=== PATIENT | female | born 1955 | race Native Hawaiian/Other Pacific Islander ===

== ENCOUNTER → 2019-01-05 | Outpatient (CLI) | payer BC ==
[2019-01-05 11:55] LABS: BASO # 0.1 10^3/uL (0.0-0.2); BASO % 0.7 % (0.0-1.0); EOS # 0.2 10^3/uL (0.0-0.50); EOS % 2.2 % (0.0-3.0); HEMATOCRIT 38.8 % (36.0-47.0); HEMOGLOBIN 12.8 g/dl (12.0-15.5); LYMPH # 2.2 10^3/uL (1.5-4.5); LYMPH % 30.8 % (24.0-44.0); MEAN CORPUSCULAR HEMOGLOBIN 25.5 pg (27.0-33.0); MEAN CORPUSCULAR VOLUME 77.4 fl (80.0-96.0); MONO # 0.6 10^3/uL (0.0-0.8); MONO % 8.8 % (0.0-5.0); NEUTROPHILS # 4.1 10^3/uL (1.8-7.7); NEUTROPHILS % 57.4 % (36.0-66.0); PLATELET COUNT, AUTOMATED 259 10^3/uL (150-450); RED BLOOD COUNT 5.01 10^6/uL (4.00-5.40); WHITE BLOOD COUNT 7.2 10^3/uL (4.0-10.0)
[2019-01-05 12:14] LABS: HEMOGLOBIN A1c 7.6 %
[2019-01-05 12:26] LABS: ALBUMIN 3.9 GM/DL (3.2-5.2); ALT/SGPT 19 U/L (12-78); BILIRUBIN,TOTAL 0.6 MG/DL (0.2-1.0); BLOOD UREA NITROGEN 14 MG/DL (7-18); CALCIUM LEVEL 8.9 MG/DL (8.8-10.2); CARBON DIOXIDE LEVEL 31 MEQ/L (21-32); CHLORIDE LEVEL 102 MEQ/L (98-107); CHOLESTEROL LEVEL 183 MG/DL (<200); CHOLESTEROL RISK RATIO 3.588 (<5); CREATININE FOR GFR 0.82 MG/DL (0.55-1.30); FREE T4 1.17 NG/DL (0.76-1.46); GLOMERULAR FILTRATION RATE > 60.0 (>45); GLUCOSE, FASTING 118 MG/DL (70-100); HDL CHOLESTEROL 51 MG/DL (>40); LDL CHOLESTEROL 106 MG/DL (<100); NON-HDL-C 132 MG/DL; POTASSIUM SERUM 4.3 MEQ/L (3.5-5.1); SODIUM LEVEL 139 MEQ/L (136-145); TOTAL PROTEIN 7.8 GM/DL (6.4-8.2); TRIGLYCERIDES LEVEL 128 MG/DL (<150)
== END ==
LOC: M LAB 11:16
PROVIDERS: ATTEND Nurse Practitioner Adult Health
DX: E11.65 Type 2 diabetes mellitus with hyperglycemia (principal); I10 Essential (primary) hypertension; F33.0 Major depressive disorder, recurrent, mild

== ENCOUNTER → 2019-05-17 | Outpatient (CLI) | payer BC ==
[2019-05-17 09:55] LABS: BASO # 0.1 10^3/uL (0.0-0.2); BASO % 0.7 % (0.0-1.0); EOS # 0.2 10^3/uL (0.0-0.50); EOS % 2.9 % (0.0-3.0); HEMATOCRIT 37.6 % (36.0-47.0); HEMOGLOBIN 12.1 g/dl (12.0-15.5); LYMPH # 2.5 10^3/uL (1.5-4.5); LYMPH % 34.6 % (24.0-44.0); MEAN CORPUSCULAR HEMOGLOBIN 25.2 pg (27.0-33.0); MEAN CORPUSCULAR HGB CONC 32.2 g/dl (32.0-36.5); MEAN CORPUSCULAR VOLUME 78.3 fl (80.0-96.0); MONO # 0.7 10^3/uL (0.0-0.8); MONO % 10.2 % (0.0-5.0); NEUTROPHILS # 3.7 10^3/uL (1.8-7.7); NEUTROPHILS % 51.3 % (36.0-66.0); PLATELET COUNT, AUTOMATED 264 10^3/uL (150-450); WHITE BLOOD COUNT 7.2 10^3/uL (4.0-10.0)
[2019-05-17 10:57] LABS: ALBUMIN 3.7 GM/DL (3.2-5.2); ALT/SGPT 19 U/L (12-78); BILIRUBIN,TOTAL 0.3 MG/DL (0.2-1.0); BLOOD UREA NITROGEN 15 MG/DL (7-18); CALCIUM LEVEL 8.8 MG/DL (8.8-10.2); CARBON DIOXIDE LEVEL 29 MEQ/L (21-32); CHLORIDE LEVEL 105 MEQ/L (98-107); CHOLESTEROL LEVEL 160 MG/DL (<200); CREATININE FOR GFR 0.73 MG/DL (0.55-1.30); FERRITIN 119 NG/ML (8-252); FREE T4 1.05 NG/DL (0.76-1.46); GLOMERULAR FILTRATION RATE > 60.0 (>45); GLUCOSE, FASTING 94 MG/DL (70-100); HDL CHOLESTEROL 50 MG/DL (>40); IRON (FE) 49 UG/DL (50-170); LDL CHOLESTEROL 83 MG/DL (<100); NON-HDL-C 110 MG/DL; PERCENT SATURATION 16.9 % (13.2-45.0); POTASSIUM SERUM 4.1 MEQ/L (3.5-5.1); SODIUM LEVEL 140 MEQ/L (136-145); TOTAL 25(OH) VITAMIN D 27.5 NG/ML (30.0-100.0); TOTAL IRON BINDING CAPACITY 290 UG/DL (250-450); TOTAL PROTEIN 7.3 GM/DL (6.4-8.2); TRIGLYCERIDES LEVEL 133 MG/DL (<150)
[2019-05-17 11:40] LABS: HEMOGLOBIN A1c 7.4 %
== END ==
LOC: M LAB 08:58
PROVIDERS: ATTEND Nurse Practitioner Adult Health
DX: E11.65 Type 2 diabetes mellitus with hyperglycemia (principal); I10 Essential (primary) hypertension; F33.0 Major depressive disorder, recurrent, mild; Z79.899 Other long term (current) drug therapy; D64.9 Anemia, unspecified; E55.9 Vitamin D deficiency, unspecified

== ENCOUNTER → 2019-10-22 | Outpatient (CLI) | payer BC ==
[2019-10-22 11:40] LABS: BASO % 0.6 % (0.0-1.0); EOS # 0.2 10^3/uL (0.0-0.5); EOS % 2.7 % (0.0-3.0); HEMATOCRIT 37.3 % (36.0-47.0); HEMOGLOBIN 11.8 g/dl (12.0-15.5); LYMPH % 27.2 % (24.0-44.0); MEAN CORPUSCULAR HGB CONC 31.6 g/dl (32.0-36.5); MONO # 0.7 10^3/uL (0.0-0.8); MONO % 9.8 % (0.0-5.0); NEUTROPHILS # 4.3 10^3/uL (1.5-8.5); NEUTROPHILS % 59.4 % (36.0-66.0); PLATELET COUNT, AUTOMATED 271 10^3/uL (150-450); RED BLOOD COUNT 4.72 10^6/uL (4.00-5.40); WHITE BLOOD COUNT 7.2 10^3/uL (4.0-10.0)
[2019-10-22 12:08] LABS: HEMOGLOBIN A1c 7.1 %
[2019-10-22 12:33] LABS: ALBUMIN 3.7 GM/DL (3.2-5.2); ALT/SGPT 24 U/L (12-78); BILIRUBIN,TOTAL 0.5 MG/DL (0.2-1.0); BLOOD UREA NITROGEN 10 MG/DL (7-18); CALCIUM LEVEL 9.2 MG/DL (8.8-10.2); CARBON DIOXIDE LEVEL 28 MEQ/L (21-32); CHLORIDE LEVEL 106 MEQ/L (98-107); CHOLESTEROL LEVEL 162 MG/DL (<200); GLOMERULAR FILTRATION RATE > 60.0 (>45); GLUCOSE, FASTING 109 MG/DL (70-100); HDL CHOLESTEROL 50 MG/DL (>40); IRON (FE) 53 UG/DL (50-170); LDL CHOLESTEROL 79 MG/DL (<100); NON-HDL-C 112 MG/DL; PERCENT SATURATION 18.1 % (13.2-45.0); POTASSIUM SERUM 4.3 MEQ/L (3.5-5.1); SODIUM LEVEL 141 MEQ/L (136-145); THYROID PEROXIDASE ANTIBODY < 28.0 U/ML (<60.0); TOTAL IRON BINDING CAPACITY 293 UG/DL (250-450); TOTAL PROTEIN 7.2 GM/DL (6.4-8.2); TRIGLYCERIDES LEVEL 164 MG/DL (<150)
== END ==
LOC: M LAB 09:35
PROVIDERS: ATTEND Nurse Practitioner Adult Health
DX: Z51.81 Encounter for therapeutic drug level monitoring (principal); Z79.899 Other long term (current) drug therapy; E78.5 Hyperlipidemia, unspecified; E11.65 Type 2 diabetes mellitus with hyperglycemia; D50.9 Iron deficiency anemia, unspecified; R94.6 Abnormal results of thyroid function studies

== ENCOUNTER → 2020-01-07 | Outpatient (CLI) | payer BC ==
[2020-01-07 13:30] LABS: BASO # 0.1 10^3/uL (0.0-0.2); BASO % 0.8 % (0.0-1.0); EOS # 0.1 10^3/uL (0.0-0.5); EOS % 1.3 % (0.0-3.0); HEMOGLOBIN 13.2 g/dl (12.0-15.5); LYMPH # 2.2 10^3/uL (1.5-5.0); LYMPH % 28.7 % (24.0-44.0); MEAN CORPUSCULAR HEMOGLOBIN 25.3 pg (27.0-33.0); MEAN CORPUSCULAR HGB CONC 32.2 g/dl (32.0-36.5); MEAN CORPUSCULAR VOLUME 78.5 fl (80.0-96.0); MONO # 0.7 10^3/uL (0.0-0.8); MONO % 8.5 % (0.0-5.0); NEUTROPHILS # 4.7 10^3/uL (1.5-8.5); NEUTROPHILS % 60.4 % (36.0-66.0); PLATELET COUNT, AUTOMATED 254 10^3/uL (150-450); RED BLOOD COUNT 5.22 10^6/uL (4.00-5.40); WHITE BLOOD COUNT 7.8 10^3/uL (4.0-10.0)
[2020-01-07 13:50] LABS: HEMOGLOBIN A1c 7.1 %
[2020-01-07 14:09] LABS: ALBUMIN 4.2 GM/DL (3.2-5.2); ALT/SGPT 27 U/L (12-78); BILIRUBIN,TOTAL 0.3 MG/DL (0.2-1.0); BLOOD UREA NITROGEN 20 MG/DL (7-18); CALCIUM LEVEL 9.1 MG/DL (8.8-10.2); CARBON DIOXIDE LEVEL 28 MEQ/L (21-32); CHLORIDE LEVEL 105 MEQ/L (98-107); CHOLESTEROL LEVEL 184 MG/DL (<200); CHOLESTEROL RISK RATIO 3.407 (<5); CREATININE FOR GFR 0.83 MG/DL (0.55-1.30); GLOMERULAR FILTRATION RATE > 60.0 (>45); GLUCOSE, FASTING 92 MG/DL (70-100); HDL CHOLESTEROL 54 MG/DL (>40); LDL CHOLESTEROL 96 MG/DL (<100); NON-HDL-C 130 MG/DL; POTASSIUM SERUM 4.2 MEQ/L (3.5-5.1); SODIUM LEVEL 139 MEQ/L (136-145); TOTAL PROTEIN 7.8 GM/DL (6.4-8.2); TRIGLYCERIDES LEVEL 170 MG/DL (<150)
== END ==
LOC: M LAB 11:52
PROVIDERS: ATTEND Nurse Practitioner Adult Health
DX: E11.65 Type 2 diabetes mellitus with hyperglycemia (principal); I10 Essential (primary) hypertension; E78.5 Hyperlipidemia, unspecified; Z79.899 Other long term (current) drug therapy; F33.0 Major depressive disorder, recurrent, mild

== ENCOUNTER 2020-03-13 20:52 | Inpatient (IN) | payer BC, MEDICARE ==
[~2020-03-13] VITALS: Ht 154.9 cm; Wt 58.1 kg
[2020-03-13] MEDS ORDERED: METO1TAB32 PO (21:31)
[2020-03-13] MEDS ORDERED: GLYB5TA PO ×2 (21:31→22:55)
[2020-03-13] MEDS ORDERED: LISI-542 PO (21:31)
[2020-03-13] MEDS ORDERED: SERT25TA21 PO (21:31)
[2020-03-13] MEDS ORDERED: METF10004 PO (21:31)
[2020-03-13 22:01] LABS: HEMATOCRIT 39.1 % (36.0-47.0); MEAN CORPUSCULAR HEMOGLOBIN 25.5 pg (27.0-33.0); MEAN CORPUSCULAR HGB CONC 33.2 g/dl (32.0-36.5); MEAN CORPUSCULAR VOLUME 76.7 fl (80.0-96.0); PLATELET COUNT, AUTOMATED 274 10^3/uL (150-450); WHITE BLOOD COUNT 8.3 10^3/uL (4.0-10.0)
[2020-03-13 22:16] LABS: AMPHETAMINES LEVEL URINE NEGATIVE (NEGATIVE); BARBITURATES URINE NEGATIVE (NEGATIVE); BENZODIAZEPINES URINE NEGATIVE (NEGATIVE); CANNABINOIDS URINE NEGATIVE (NEGATIVE); COCAINE METABOLITE URINE NEGATIVE (NEGATIVE); METHADONE URINE NEGATIVE (NEGATIVE); OPIATES URINE NEGATIVE (NEGATIVE); PHENCYCLIDINE URINE NEGATIVE (NEGATIVE)
[2020-03-13 22:26] LABS: ACETAMINOPHEN LEVEL < 2.0 UG/ML (10.0-30.0); ALBUMIN 4.1 GM/DL (3.2-5.2); ALT/SGPT 25 U/L (12-78); BILIRUBIN,DIRECT 0.1 MG/DL (0.0-0.2); BILIRUBIN,TOTAL 0.5 MG/DL (0.2-1.0); BLOOD UREA NITROGEN 14 MG/DL (7-18); CALCIUM LEVEL 9.3 MG/DL (8.8-10.2); CARBON DIOXIDE LEVEL 24 MEQ/L (21-32); CHLORIDE LEVEL 106 MEQ/L (98-107); CREATININE FOR GFR 1.11 MG/DL (0.55-1.30); ETHYL ALCOHOL (ETHANOL) < 0.003 % (0.000-0.010); GLOMERULAR FILTRATION RATE 52.5 (>45); GLUCOSE, FASTING 118 MG/DL (70-100); POTASSIUM SERUM 4.3 MEQ/L (3.5-5.1); SALICYLATE LEVEL < 1.7 MG/DL (5.0-30.0); SODIUM LEVEL 139 MEQ/L (136-145); TOTAL PROTEIN 7.8 GM/DL (6.4-8.2)
[2020-03-13] MEDS ORDERED: MOM 30ML SUSPENSION UDC PO PRN (22:45)
[2020-03-13] MEDS ORDERED: ACETAMINOPHEN TAB 650MG DOSE (2X325MG) PO PRN (22:45)
[2020-03-13] MEDS ORDERED: MAALOX 30 ML SUSP *UDC PO PRN (22:45)
[2020-03-13] MEDS: risperiDONE 0.25 MG TAB PO SCH (23:03)
[2020-03-14 02:28] VITALS: BP 127/68
[2020-03-14 06:35] VITALS: BP 119/58
[2020-03-14] MEDS: glyBURIDE 2.5 MG TAB PO SCH ×2 (07:04→17:50)
[2020-03-14] MEDS ORDERED: FLUBLOK(EGG FREE)(QUAD)INFLUENZA VACC 0.5ML SYRINGE (90682)18YRS&OLDER IM ONE (09:00)
[2020-03-14] MEDS ORDERED: DEXTROSE 50% 50 ML SYRINGE IV PRN (09:15)
[2020-03-14] MEDS ORDERED: GLUCAGON INJ 1MG VIAL SC PRN (09:15)
[2020-03-14] MEDS ORDERED: GLUCOSE 4GM CHEW TABLET PO PRN (09:15)
[2020-03-14] MEDS: lisinopriL 5 MG TAB PO SCH (09:59)
[2020-03-14] MEDS: metFORMIN (GLUCOPHAGE) 1000 MG TABLET PO SCH ×2 (09:59→17:50)
[2020-03-14] MEDS: risperiDONE 0.25 MG TAB PO SCH ×2 (09:59→21:52)
[2020-03-14] MEDS: SERTRALINE HCL 25 MG TABLET PO SCH (10:00)
[2020-03-14] MEDS: METOPROLOL SUCC *XL* 25MG TAB (TopROL *XL*) PO SCH ×2 (10:00→21:53)
[2020-03-14] MEDS: PILL CUTTER 1 EACH XX PRN (10:00)
[2020-03-14] MEDS: HumaLOG INSULIN (NovoLOG) PER UNIT SC SCH ×3 (12:14→21:00)
--- NOTE | 2020-03-14 16:10 | MHHPEPDOC ---
[facility] History & Physical History and Physical DATE OF ADMISSION: Mar 13, 2020 at 22:41 New Patient Shlomo Damon MRN: N/A Date of : N/A Date of Service: 03/14/2020 Chief Complaint "I got paranoid." History of Present Illness The patient is a 64-year-old woman with a history of schizophrenia presents after stopping her risperidone. She reports she became paranoid, worried and fear that people are out to get here. Her family brought her in as she became more disabled by her paranoia and reported difficulties feeling that people are watching her. She is able to express these more effectively, but generally attempts to hide the severity. Review Of Systems Depression: The patient denies any episodes of unprovoked depressed mood associated with neurovegetative symptoms lasting longer than 2 weeks with symptoms present nearly everyday. Anxiety: The patient denies any excessive worry associated with physical symptoms. They deny any experience of discreet panic in the past. Minnie: The patient denies any episodes of euphoria/dysphoria associated with decreased need for sleep, hedonism, talkatively or impulsivity lasting longer than 5 days. Psychotic: As above. Trauma: The patient denies any traumatic events associated with nightmares or intrusive thoughts. Borderline: Not screened due to age. Past Psychiatric History Reports being hospitalized several years ago diagnosed in 2009 with paranoid schizophrenia on sertraline and risperidone. No history of suicide attempts. Allergies Please see below. Family Psychiatric History The patient denies/is unaware any history of mental health history including addictions and suicide. Social History Patient grew up in the [facility]. She is primarily supported by her daughter who is a single mother and her children. She has no major or legal problems. Denies any history of trauma or abuse. Currently lives alone, unemployed. Substance Abuse History The patient denies any excessive alcohol use, tobacco or illicit drug use, denies history of substance use treatment. Medical History Has a history of diabetes and hypertension. Mental Status Examination General: Well dressed with good hygiene Speech: Spontaneous and fluid Thought processes: Linear and logical MSK: Smooth and coordinated gait, no signs of tremors or involuntary orofacial movements Thought content: Some paranoid thoughts Abstract reasoning, and computation: Intact Description of associations: Mildly impaired Description of abnormal or psychotic thoughts: Denies any suicidal or homicidal ideation. Denies any auditory or visual hallucinations. Does not appear to be responding to internal stimuli. Does not appear to be endorsing any bizarre or paranoid ideation. Judgment: Limited Insight: Limited Orientation: Alert and orientated 3 Cognition: Grossly normal Recent and remote memory: Intact Attention span and concentration: Intact Fund of knowledge: Adequate Mood: "okay" Affect: Mildly falt Diagnoses Schizophrenia. Assessment and Plan Schizophrenia: Resume patient's home risperidone and sertraline as has been done . Observational will be needed as her paranoia disappeared to ebb and wane and will need to be stabilized more effectively. Disposition Patient will likely need to stay overnight if not longer for monitoring as her paranoia appears to come here and there and she is generally interested in discharge without much insight into the problems that brought her in. Problem List 1. Altered thoughts. Initial Treatment Plan 1. Patient was admitted on a legal status. 2. Complete history was obtained. 3. With patients permission, family will be contacted and database will be expanded. 4. Patients medication regimen will be reviewed and changed accordingly. 5. Patient will be provided with protected environment. 6. Patient will be treated with individual, group, and milieu therapies. 7. Patient will receive supportive psych-education. 8. Discharge planning will commence immediately. 9. Outpatient follow-up treatment will be strongly recommended. 10. The initial treatment plan will focus initially on: Estimated Length Of Stay 4 days. Time Spent 70 minutes with greater than 50% of time spent on counseling/coordination of care. Friday Vital Signs Vital Signs Date Time Temp Pulse Resp B/P (MAP) Pulse Ox O2 Delivery O2 Flow Rate FiO2 03/14/20 10:00 92 156/69 03/14/20 06:35 97.2 14 99 Room Air Laboratory Data 24H Labs Laboratory Tests 2 03/13/20 21:44: Nucleated Red Blood Cells % (auto) 0.0, Anion Gap 9, Glomerular Filtration Rate 52.5, Calcium Level 9.3, Total Bilirubin 0.5, Direct Bilirubin 0.1, Aspartate Amino Transf (AST/SGOT) 14, Alanine Aminotransferase (ALT/SGPT) 25, Alkaline Phosphatase 85, Total Protein 7.8, Albumin 4.1, Albumin/Globulin Ratio 1.11, Th yroid Stimulating Hormone (TSH) 2.140, Salicylates Level < 1.7L, Urine Opiates Screen NEGATIVE, Urine Methadone Screen NEGATIVE, Acetaminophen Level < 2.0L, Urine Barbiturates Screen NEGATIVE, Urine Phencyclidine Screen NEGATIVE, Urine Amphetamines Screen NEGATIVE, Urine Benzodiazepines Screen NEGATIVE, Urine Cocaine Metabolite Screen NEGATIVE, Urine Cannabinoids Screen NEGATIVE, Ethyl Alcohol Level < 0.003 03/14/20 12:10: Bedside Glucose (Misc Panel) 229H CBC/BMP Laboratory Tests 03/13/20 21:44 FSBS Laboratory Tests Test 03/14/20 12:10 Range/Units Bedside Glucose (Misc Panel) 229 80-115 MG/DL Medications Scheduled Glyburide (Glyburide) 5 Mg Tablet, 10 MG PO QAM, (Reported) Glyburide (Glyburide) 5 Mg Tablet, 5 MG PO QPM, (Reported) Lisinopril (Lisinopril) 5 Mg Tablet, 5 MG PO DAILY, (Reported) Metformin HCl (Metformin HCl) 1,000 Mg Tablet, 1,000 MG PO BID, (Reported) Metoprolol Succinate (Metoprolol Succinate) 25 Mg Tab.er.24h, 25 MG PO BID, (Reported) Sertraline HCl (Sertraline HCl) 25 Mg Tablet, 12.5 MG PO DAILY, (Reported) Allergies Coded Allergies: amoxicillin (Verified Allergy, Unknown, 03/13/20) aspirin (Verified Allergy, Unknown, 03/13/20) YURI MADRIGAL DO Mar 14, 2020 16:10
[2020-03-14 17:20] VITALS: BP 123/59
--- NOTE | 2020-03-14 17:29 | HPE ---
DATE OF ADMISSION: 03/13/2020 DATE OF SERVICE: 03/14/2020 CHIEF COMPLAINT: Paranoia, schizophrenia. HISTORY OF THE PRESENT ILLNESS: This is a 64-year-old female, history of schizophrenia, diabetes, hypertension, and depression, admitted due to increasing paranoia, schizophrenia into the mental health unit. No suicidal or homicidal ideation. Patient has no new complaints aside from requesting her Risperdal to be restarted. Patient says that her neighbors have been bothering her. She has been increasingly paranoid. She has kept to "my own business" but says that they do not like her. No cough, shortness of breath, fever, chills, changes in weight, nausea, vomiting, abdominal pain, muscle aches, joint pain, dysuria, urgency, frequency, nausea, vomiting, diarrhea, abdominal pain. PAST MEDICAL HISTORY: Schizophrenia. Diabetes. Hypertension. Depression. PAST SURGICAL HISTORY: Left skin graft to the hand. Two dental extractions. ALLERGIES: To AMOXICILLIN causing rash, ASPIRIN causing gastrointestinal (GI) upset. HOME MEDICATIONS: - glyburide 5 mg every evening, 10 mg every morning - lisinopril 5 mg daily - metformin 1 gram twice a day - metoprolol 25 mg twice a day - sertraline 12.5 mg daily PHYSICAL EXAMINATION: Temperature 97.2, pulse 67, respiratory rate 14, blood pressure 119/58, 99% on room air. Generally, patient is awake, alert, oriented to herself, answers questions appropriately. No jugular venous distention (JVD). No thyromegaly. No cervical lymphadenopathy. Lungs are clear to auscultation. No wheezing, rales or rhonchi. Heart: S1, S2, sinus rhythm. Abdomen is soft, nontender, nondistended. Positive bowel sounds. Extremities: No cyanosis, clubbing or pitting edema. LABORATORY DATA: 03/13/2020 - white count 8.3, hemoglobin 13, hematocrit 39, platelet count 274. Sodium 139, potassium 4.2, chloride 106, bicarbonate 24, BUN 14, creatinine 1.11, glucose 118, calcium 9.3, total bilirubin 0.5, direct bilirubin 0.1, AST 14, ALT 25, alkaline phosphatase 85, total protein 7.8, albumin 4.1, TSH of 2.14. ASSESSMENT AND PLAN: This is a 64-year-old diabetic patient with schizophrenia, hypertension, depression, admitted due to increasing paranoia and hearing voices. IMPRESSION: 1. Schizophrenia. Defer to psychiatrist for adjustment of medications. Patient is requesting for risperidone to be resumed. 2. Diabetes. Patient currently is on metformin, glyburide, which are appropriate. Continue sliding scale. Change regular diet to a consistent carbohydrate diet with fingersticks before food and nightly and hypoglycemic protocol. 3. Hypertension. Patient is on metoprolol and lisinopril. Adjust for better control if systolic pressure is maintained greater than 140. 4. Depression. Continued on chronic dose of Zoloft 12.5 mg daily. 5. Deep vein thrombosis (DVT) prophylaxis. Encourage ambulation. MTDD
[2020-03-14] MEDS: traZODone 50 MG TAB PO PRN (21:54)
[2020-03-15 06:16] VITALS: BP 123/60
[2020-03-15] MEDS: glyBURIDE 2.5 MG TAB PO SCH ×2 (06:47→18:01)
[2020-03-15] MEDS: HumaLOG INSULIN (NovoLOG) PER UNIT SC SCH ×4 (07:01→20:37)
[2020-03-15] MEDS: metFORMIN (GLUCOPHAGE) 1000 MG TABLET PO SCH ×2 (07:28→18:01)
[2020-03-15] MEDS: PILL CUTTER 1 EACH XX PRN (08:56)
[2020-03-15] MEDS: METOPROLOL SUCC *XL* 25MG TAB (TopROL *XL*) PO SCH ×2 (08:57→20:39)
[2020-03-15] MEDS: lisinopriL 5 MG TAB PO SCH (08:57)
[2020-03-15] MEDS: risperiDONE 0.25 MG TAB PO SCH (08:57)
[2020-03-15] MEDS: SERTRALINE HCL 25 MG TABLET PO SCH (08:58)
--- NOTE | 2020-03-15 09:57 | MHIPNPDOC ---
[facility] Progress Note Progress Note Inpatient Progress Note Shlomo Damon MRN: N/A Date of : N/A Date of Service: 03/15/2020 History of Present Illness The patient is a 64-year-old woman with a history of schizophrenia presents after stopping her risperidone. She reports she became paranoid, worried and fear that people are out to get here. Her family brought her in as she became more disabled by her paranoia and reported difficulties feeling that people are watching her. She is able to express these more effectively, but generally attempts to hide the severity. Interval History The patient is met with today. She reports that she has had some more worried thoughts. She does not wish to discuss these saying they are "confidential." She reports that she is still interested in going home, however, she is unable to rectify the concerns about her paranoia. She generally is guarded and does not answer very many questions directly. Staff report the patient has been quite p aranoid, feeling that people are out to get her, has been calling family members at all times of the night, quite distorted and paranoid, attempting to call 911. She has not been aggressive. Review Of Systems Denies any physical side effects. Psychotherapy None on this visit. Vital Signs Reviewed. Mental Status Examination General: Well dressed with good hygiene Speech: Spontaneous and fluid Thought processes: Linear and logical MSK: Smooth and coordinated gait, no signs of tremors or involuntary orofacial movements Thought content: More paranoid thoughts Abstract reasoning, and computation: Intact Description of associations: Mildly impaired Description of abnormal or psychotic thoughts: Denies any suicidal or homicidal ideation. Denies any auditory or visual hallucinations. Judgment: Limited Insight: Limited Orientation: Alert and orientated 3 Cognition: Grossly normal Recent and remote memory: Intact Attention span and concentration: Intact Fund of knowledge: Adequate Mood: "okay" Affect: Diagnoses Schizophrenia. Assessment and Plan Schizophrenia: Resume patient's home risperidone and sertraline as has been done. Observational will be needed as her paranoia disappeared to ebb and wane and will need to be stabilized more effectively. Increase risperidone to 0.5 mg BID. Continue sertraline 12.5 mg daily. Disposition Patient will need further inpatient treatment under involuntary status, as she is paranoid and quite disabled by her psychosis, unable to engage in any meaningful discussion. Time Spent 15 minutes. Friday Vital Signs Vital Signs Date Time Temp Pulse Resp B/P (MAP) Pulse Ox O2 Delivery O2 Flow Rate FiO2 03/15/20 08:57 80 146/80 03/15/20 06:16 96.8 14 97 Room Air Laboratory Data 24H Labs Laboratory Tests 2 03/14/20 12:10: Bedside Glucose (Misc Panel) 229H 03/14/20 17:08: Bedside Glucose (Misc Panel) 76L 03/14/20 21:54: Bedside Glucose (Misc Panel) 111 03/15/20 06:51: Bedside Glucose (Misc Panel) 130H Current Medications Current Medications Medications (Trade) Dose Ordered Sig/Ayesha Route PRN Reason Start Time Stop Time Status Last Admin Dose Admin Acetaminophen (Tylenol Tab) 650 mg Q6HP PRN PO HEADACHE or DISCOMFORT 03/13/20 22:45 Al Hydrox/Mg Hydrox/Simethicone (Mylanta) 30 ml Q4HP PRN PO HEARTBURN/INDIGESTION 03/13/20 22:45 Dextrose (Dextrose 50%) 25 ml ASDIRECTED PRN IV SEE LABEL COMMENTS 03/14/20 09:15 Glucagon (Glucagon) 1 mg ASDIRECTED PRN SC SEE LABEL COMMENTS 03/14/20 09:15 Glucose (Glucose) 16 GM ASDIRECTED PRN PO SEE LABEL COMMENTS 03/14/20 09:15 Glyburide (Diabeta, Micronase) 5 mg DAILY@1730 PO 03/14/20 17:30 03/14/20 17:50 Glyburide (Diabeta, Micronase) 10 mg DAILY@0730 PO 03/14/20 07:30 03/15/20 06:47 Home Med (Med Rec Complete!) ASDIRECTED XX 03/13/20 23:30 03/13/20 23:43 DC Insulin Human Lispro (HumaLOG INSULIN) SEE PROTOCOL TABLE AC SC 03/14/20 12:00 03/14/20 12:14 Insulin Human Lispro (HumaLOG INSULIN) SEE PROTOCOL TABLE QHS SC 03/14/20 21:00 Lisinopril (Prinivil) 5 mg DAILY PO 03/14/20 09:00 03/15/20 08:57 Magnesium Hydroxide (Milk Of Magnesia) 30 ml DAILYPRN PRN PO CONSTIPATION 03/13/20 22:45 Metformin HCl (Glucophage) 1,000 mg BID@0800,1800 PO 03/14/20 08:00 03/15/20 07:28 Metoprolol Succinate (TopROL XL) 25 mg BID PO 03/14/20 09:00 03/15/20 08:57 Risperidone (RisperDAL) 0.25 mg BID PO 03/13/20 21:00 03/15/20 08:57 Sertraline HCl (Zoloft) 12.5 mg DAILY PO 03/14/20 09:00 03/15/20 08:58 Trazodone HCl (Desyrel) 50 mg QHSP PRN PO INSOMNIA 03/13/20 22:45 03/14/20 21:54 Allergies Coded Allergies: amoxicillin (Verified Allergy, Unknown, 03/13/20) aspirin (Verified Allergy, Unknown, 03/13/20) YURI MADRIGAL DO Mar 15, 2020 09:57
[2020-03-15 16:19] VITALS: BP 132/68
[2020-03-15] MEDS: risperiDONE 0.5 MG TAB PO SCH (20:39)
[2020-03-15] MEDS: traZODone 50 MG TAB PO PRN (20:40)
[2020-03-16 06:23] VITALS: BP 140/89
[2020-03-16] MEDS: glyBURIDE 2.5 MG TAB PO SCH ×2 (06:51→17:18)
[2020-03-16] MEDS: HumaLOG INSULIN (NovoLOG) PER UNIT SC SCH ×4 (06:51→21:00)
[2020-03-16] MEDS: risperiDONE 0.5 MG TAB PO SCH ×2 (08:17→21:32)
[2020-03-16] MEDS: METOPROLOL SUCC *XL* 25MG TAB (TopROL *XL*) PO SCH ×2 (08:17→21:32)
[2020-03-16] MEDS: SERTRALINE HCL 25 MG TABLET PO SCH (08:17)
[2020-03-16] MEDS: metFORMIN (GLUCOPHAGE) 1000 MG TABLET PO SCH ×2 (08:17→17:18)
[2020-03-16] MEDS: lisinopriL 5 MG TAB PO SCH (08:19)
--- NOTE | 2020-03-16 09:48 | MHIPNPDOC ---
[facility] Progress Note Progress Note Inpatient Progress Note Shlomo Damon MRN: N/A Date of : N/A Date of Service: 03/16/2020 History of Present Illness The patient is a 64-year-old woman with a history of schizophrenia presents after stopping her risperidone. She reports she became paranoid, worried and fear that people are out to get here. Her family brought her in as she became more disabled by her paranoia and reported difficulties feeling that people are watching her. She is able to express these more effectively, but generally attempts to hide the severity. Interval History The patient has met with today. She reports that she is feeling more paranoid and worries about various people coming after. When asked more specifically she says "it's confidential." The patient continues to have great paranoia, calling her family members multiple times during the day and feeling that people are out to kill her and her family. She is generally able to engage in a minimal int erview, but is quite distracted during it. She has had no aggression or behavioral problems other than the paranoia and asking to call them over and over at night. Review Of Systems Unable to obtain fully due to mental status exam, however, denies any overt physical side effects. Psychotherapy None on this visit. Vital Signs Reviewed. Mental Status Examination General: Well dressed with good hygiene Speech: Spontaneous and fluid Thought processes: Linear and logical MSK: Smooth and coordinated gait, no signs of tremors or involuntary orofacial movements Thought content: More paranoid thoughts Abstract reasoning, and computation: Intact Description of associations: Mildly impaired Description of abnormal or psychotic thoughts: Denies any suicidal or homicidal ideation. Denies any auditory or visual hallucinations. Judgment: Limited Insight: Limited Orientation: Alert and orientated 3 Cognition: Grossly normal Recent and remote memory: Intact Attention span and concentration: Intact Fund of knowledge: Adequate Mood: "okay" Affect: Flat with a little reactivity. Diagnoses Schizophrenia. Assessment and Plan Schizophrenia: We'll continue risperidone 0.5 mg BID and sertraline. We'll change to other agent if paranoia does not resolve. Disposition Patient will need further inpatient treatment under involuntary status, as she is paranoid and quite disabled by her psychosis, unable to engage in any meaningful discussion. Time Spent 15 minutes. Vital Signs Vital Signs Date Time Temp Pulse Resp B/P (MAP) Pulse Ox O2 Delivery O2 Flow Rate FiO2 4/30/20 08:19 140/89 03/16/20 08:17 89 03/16/20 06:23 97.2 16 98 Room Air Laboratory Data 24H Labs Laboratory Tests 2 03/15/20 11:53: Bedside Glucose (Misc Panel) 203H 03/15/20 16:56: Bedside Glucose (Misc Panel) 107 03/15/20 20:36: Bedside Glucose (Misc Panel) 121H 03/16/20 06:46: Bedside Glucose (Misc Panel) 171H Current Medications Current Medications Medications (Trade) Dose Ordered Sig/Ayesha Route PRN Reason Start Time Stop Time Status Last Admin Dose Admin Acetaminophen (Tylenol Tab) 650 mg Q6HP PRN PO HEADACHE or DISCOMFORT 03/13/20 22:45 Al Hydrox/Mg Hydrox/Simethicone (Mylanta) 30 ml Q4HP PRN PO HEARTBURN/INDIGESTION 03/13/20 22:45 Dextrose (Dextrose 50%) 25 ml ASDIRECTED PRN IV SEE LABEL COMMENTS 03/14/20 09:15 Glucagon (Glucagon) 1 mg ASDIRECTED PRN SC SEE LABEL COMMENTS 03/14/20 09:15 Glucose (Glucose) 16 GM ASDIRECTED PRN PO SEE LABEL COMMENTS 03/14/20 09:15 Glyburide (Diabeta, Micronase) 5 mg DAILY@1730 PO 03/14/20 17:30 03/15/20 18:01 Glyburide (Diabeta, Micronase) 10 mg DAILY@0730 PO 03/14/20 07:30 03/16/20 06:51 Home Med (Med Rec Complete!) ASDIRECTED XX 03/13/20 23:30 03/13/20 23:43 DC Insulin Human Lispro (HumaLOG INSULIN) SEE PROTOCOL TABLE AC SC 03/14/20 12:00 03/16/20 06:51 Insulin Human Lispro (HumaLOG INSULIN) SEE PROTOCOL TABLE QHS SC 03/14/20 21:00 Lisinopril (Prinivil) 5 mg DAILY PO 03/14/20 09:00 03/16/20 08:19 Magnesium Hydroxide (Milk Of Magnesia) 30 ml DAILYPRN PRN PO CONSTIPATION 03/13/20 22:45 Metformin HCl (Glucophage) 1,000 mg BID@0800,1800 PO 03/14/20 08:00 03/16/20 08:17 Metoprolol Succinate (TopROL XL) 25 mg BID PO 03/14/20 09:00 03/16/20 08:17 Risperidone (RisperDAL) 0.25 mg BID PO 03/13/20 21:00 03/15/20 16:32 DC 03/15/20 08:57 Risperidone (RisperDAL) 0.5 mg BID PO 03/15/20 21:00 03/16/20 08:17 Sertraline HCl (Zoloft) 12.5 mg DAILY PO 03/14/20 09:00 03/16/20 08:17 Trazodone HCl (Desyrel) 50 mg QHSP PRN PO INSOMNIA 03/13/20 22:45 03/15/20 20:40 Allergies Coded Allergies: amoxicillin (Verified Allergy, Unknown, 03/13/20) aspirin (Verified Allergy, Unknown, 03/13/20) YURI MADRIGAL DO Mar 16, 2020 09:48
[2020-03-16 16:00] VITALS: BP 170/80
[2020-03-16 18:30] VITALS: BP 170/84
[2020-03-16 21:36] VITALS: BP 160/92
[2020-03-17] MEDS: traZODone 50 MG TAB PO PRN (04:20)
[2020-03-17 06:25] VITALS: BP 150/80
[2020-03-17] MEDS: glyBURIDE 2.5 MG TAB PO SCH ×2 (06:34→17:18)
[2020-03-17] MEDS: HumaLOG INSULIN (NovoLOG) PER UNIT SC SCH ×4 (06:42→20:17)
[2020-03-17] MEDS: PILL CUTTER 1 EACH XX PRN (08:59)
[2020-03-17] MEDS: risperiDONE 0.5 MG TAB PO SCH (09:00)
[2020-03-17] MEDS: metFORMIN (GLUCOPHAGE) 1000 MG TABLET PO SCH ×2 (09:00→17:17)
[2020-03-17] MEDS: lisinopriL 5 MG TAB PO SCH (09:00)
[2020-03-17] MEDS: METOPROLOL SUCC *XL* 25MG TAB (TopROL *XL*) PO SCH ×2 (09:00→20:16)
[2020-03-17] MEDS: SERTRALINE HCL 25 MG TABLET PO SCH (09:00)
--- NOTE | 2020-03-17 09:24 | MHIPNPDOC ---
[facility] Progress Note Progress Note Inpatient Progress Note Shlomo Damon MRN: N/A Date of : N/A Date of Service: 03/17/2020 History of Present Illness The patient is a 64-year-old woman with a history of schizophrenia presents after stopping her risperidone. She reports she became paranoid, worried and fear that people are out to get here. Her family brought her in as she became more disabled by her paranoia and reported difficulties feeling that people are watching her. She is able to express these more effectively, but generally attempts to hide the severity. Interval History Patient is attempted to met with today. However, she is too psychotic to engage in an interview, quite paranoid and unable to reason she thinks people are to kill her. She has been quite paranoid per nursing and has been generally unable to engage in any meaningful interview. Review Of Systems Unable to obtain fully due to mental status exam, however, denies any overt physical side effects. Psychotherapy None on this visit. Vital Signs Reviewed. Mental Status Examination General: Well dressed with good hygiene Speech: Spontaneous and fluid Thought processes: Linear and logical MSK: Smooth and coordinated gait, no signs of tremors or involuntary orofacial movements Thought content: More paranoid thoughts Abstract reasoning, and computation: Intact Description of associations: Mildly impaired Description of abnormal or psychotic thoughts: Denies any suicidal or homicidal ideation. Denies any auditory or visual hallucinations. Judgment: Limited Insight: Limited Orientation: Alert and orientated 3 Cognition: Grossly normal Recent and remote memory: Intact Attention span and concentration: Intact Fund of knowledge: Adequate Mood: "okay" Affect: Flat with a little reactivity. Diagnoses Schizophrenia. Assessment and Plan Schizophrenia: Discontinue risperidone, start Abilify 5 mg nightly, continue sertraline. Disposition Patient will need further inpatient treatment under involuntary status, as she is paranoid and quite disabled by her psychosis, unable to engage in any meaningful discussion. Time Spent 15 minutes. Friday Vital Signs Vital Signs Date Time Temp Pulse Resp B/P (MAP) Pulse Ox O2 Delivery O2 Flow Rate FiO2 03/17/20 09:00 90 138/70 03/17/20 06:25 98.7 14 100 Room Air Laboratory Data 24H Labs Laboratory Tests 2 03/16/20 11:51: Bedside Glucose (Misc Panel) 164H 03/16/20 17:08: Bedside Glucose (Misc Panel) 179H 03/16/20 21:29: Bedside Glucose (Misc Panel) 172H 03/17/20 06:38: Bedside Glucose (Misc Panel) 291H Current Medications Current Medications Medications (Trade) Dose Ordered Sig/Ayesha Route PRN Reason Start Time Stop Time Status Last Admin Dose Admin Acetaminophen (Tylenol Tab) 650 mg Q6HP PRN PO HEADACHE or DISCOMFORT 03/13/20 22:45 Al Hydrox/Mg Hydrox/Simethicone (Mylanta) 30 ml Q4HP PRN PO HEARTBURN/INDIGESTION 03/13/20 22:45 Dextrose (Dextrose 50%) 25 ml ASDIRECTED PRN IV SEE LABEL COMMENTS 03/14/20 09:15 Glucagon (Glucagon) 1 mg ASDIRECTED PRN SC SEE LABEL COMMENTS 03/14/20 09:15 Glucose (Glucose) 16 GM ASDIRECTED PRN PO SEE LABEL COMMENTS 03/14/20 09:15 Glyburide (Diabeta, Micronase) 5 mg DAILY@1730 PO 03/14/20 17:30 03/16/20 17:18 Glyburide (Diabeta, Micronase) 10 mg DAILY@0730 PO 03/14/20 07:30 03/17/20 06:34 Home Med (Med Rec Complete!) ASDIRECTED XX 03/13/20 23:30 03/13/20 23:43 DC Insulin Human Lispro (HumaLOG INSULIN) SEE PROTOCOL TABLE AC SC 03/14/20 12:00 03/17/20 06:42 Insulin Human Lispro (HumaLOG INSULIN) SEE PROTOCOL TABLE QHS SC 03/14/20 21:00 Lisinopril (Prinivil) 5 mg DAILY PO 03/14/20 09:00 03/17/20 09:00 Magnesium Hydroxide (Milk Of Magnesia) 30 ml DAILYPRN PRN PO CONSTIPATION 03/13/20 22:45 Metformin HCl (Glucophage) 1,000 mg BID@0800,1800 PO 03/14/20 08:00 03/17/20 09:00 Metoprolol Succinate (TopROL XL) 25 mg BID PO 03/14/20 09:00 03/17/20 09:00 Risperidone (RisperDAL) 0.25 mg BID PO 03/13/20 21:00 03/15/20 16:32 DC 03/15/20 08:57 Risperidone (RisperDAL) 0.5 mg BID PO 03/15/20 21:00 03/17/20 09:00 Sertraline HCl (Zoloft) 12.5 mg DAILY PO 03/14/20 09:00 03/17/20 09:00 Trazodone HCl (Desyrel) 50 mg QHSP PRN PO INSOMNIA 03/13/20 22:45 03/17/20 04:20 Allergies Coded Allergies: amoxicillin (Verified Allergy, Unknown, 03/13/20) aspirin (Verified Allergy, Unknown, 03/13/20) YURI MADRIGAL DO March 17, 2020 09:23
[2020-03-17 16:37] VITALS: BP 139/76
[2020-03-18] VITALS (7 sets, daily range): BP systolic 90–143; BP diastolic 53–77
[2020-03-18] MEDS: glyBURIDE 2.5 MG TAB PO SCH ×2 (06:30→17:23)
[2020-03-18] MEDS: HumaLOG INSULIN (NovoLOG) PER UNIT SC SCH ×4 (06:30→21:00)
[2020-03-18] MEDS: metFORMIN (GLUCOPHAGE) 1000 MG TABLET PO SCH ×2 (07:27→17:23)
[2020-03-18] MEDS: lisinopriL 5 MG TAB PO SCH (08:27)
[2020-03-18] MEDS: METOPROLOL SUCC *XL* 25MG TAB (TopROL *XL*) PO SCH ×2 (08:27→21:00)
[2020-03-18] MEDS: PILL CUTTER 1 EACH XX PRN (08:27)
[2020-03-18] MEDS: SERTRALINE HCL 25 MG TABLET PO SCH (08:27)
[2020-03-18] MEDS ORDERED: LORazepam 1 MG TAB PO STA (18:41)
[2020-03-18] MEDS ORDERED: OLANZapine ORAL DISINTEGRATING TAB 5MG PO STA (18:49)
[2020-03-18] MEDS ORDERED: LORazepam 2 MG/ML VIAL (J2060) IM STA ×2 (20:00→20:09)
[2020-03-18] MEDS ORDERED: HALOPERIDOL 5MG/ML VIAL (J1630 PER 1) IM STA ×2 (20:09→20:12)
--- NOTE | 2020-03-18 20:24 | IPNPDOC ---
Text Note Date of Service The patient was seen on 03/18/20. NOTE APPROXIMATE TIME OF SERVICE 812 PM PSYCH CERTIFICATION FACE TO FACE: yes PHYSICIAN ASSESSMENT: The patient was agitated, not following verbal instructions, yelling and disrupting other residents. VITALS: see below GEN: agitated/ anxious / yelling that we are going to give her COVID / delusional REASON FOR RESTRAINT: The patient was a danger to herself. DE-ESCALATION INTERVENTIONS ATTEMPTED BEFORE USE OF RESTRAINTS: verbal redirection [MECHANICAL AND/OR CHEMICAL] RESTRAINTS USED: Both LENGTH OF TIME ORDERED IN RESTRAINTS: 4 hours WHEN TO DISCONTINUE RESTRAINTS: When the patient is no longer a threat to to herself Post evaluation of restraint due in 24 hours. VS,Fishbone, I+O VS, Fishbone, I+O Vital Signs Date Time Temp Pulse Resp B/P (MAP) Pulse Ox O2 Delivery O2 Flow Rate FiO2 03/18/20 16:24 97.3 77 18 130/74 (92) 03/17/20 06:25 100 Room Air PENNY BAUTISTA MD March 18, 2020 20:24
[2020-03-19 06:35] VITALS: BP 112/65
[2020-03-19] MEDS: glyBURIDE 2.5 MG TAB PO SCH ×2 (07:10→17:30)
[2020-03-19] MEDS: HumaLOG INSULIN (NovoLOG) PER UNIT SC SCH ×4 (07:10→21:00)
[2020-03-19] MEDS: metFORMIN (GLUCOPHAGE) 1000 MG TABLET PO SCH ×2 (08:00→18:18)
[2020-03-19] MEDS: lisinopriL 5 MG TAB PO SCH ×2 (09:00→15:30)
[2020-03-19] MEDS: SERTRALINE HCL 25 MG TABLET PO SCH ×2 (09:00→15:29)
[2020-03-19] MEDS: METOPROLOL SUCC *XL* 25MG TAB (TopROL *XL*) PO SCH ×2 (09:00→21:29)
--- NOTE | 2020-03-19 14:56 | MHIPN ---
DATE: 03/18/2020 This is a telemedicine video evaluation, it is a followup, she is in the inpatient unit. She is seen in the presence of staff. VITAL SIGNS: Blood pressure 147/74, pulse 78, temperature 96.9. CHIEF COMPLAINT: Says feels okay. SUBJECTIVE: She is seen in the presence of staff, says feels okay, though vague when asked to expand on this, says has slept well, and that moods are a bit better. Says has asked a friend to contact her, and she also spoke of a daughter and grandchildren locally, says had been stressed looking after the grandchildren, but she did not go into details. MENTAL STATUS EXAM: Neat, cooperative, no agitation. No psychomotor retardation. Answers questions logically mostly, but at times they are not in keeping with the topic at hand. Does not appear internally preoccupied and overt paranoid ideations are somewhat unclear at present. No fluctuation of consciousness. She is alert and oriented, does not appear to be internally preoccupied. Judgment and insight are questionable. ASSESSMENT: Schizophrenia by history. PLAN: Continue current care. The patient suggested some rash possibly due to trazodone, it was unclear. We will monitor this. She is given verbal support. She is to be encouraged to participate in activities in the unit. Further recommendations will be made depending on clinical picture.
[2020-03-19 15:27] VITALS: BP 140/80
[2020-03-19] MEDS: PILL CUTTER 1 EACH XX PRN (15:29)
[2020-03-20 06:27] VITALS: BP 155/82
[2020-03-20] MEDS: glyBURIDE 2.5 MG TAB PO SCH ×3 (07:01→17:21)
[2020-03-20] MEDS: HumaLOG INSULIN (NovoLOG) PER UNIT SC SCH ×4 (07:01→21:00)
[2020-03-20] MEDS: metFORMIN (GLUCOPHAGE) 1000 MG TABLET PO SCH ×2 (08:43→17:19)
[2020-03-20] MEDS: SERTRALINE HCL 25 MG TABLET PO SCH (08:43)
[2020-03-20] MEDS: lisinopriL 5 MG TAB PO SCH (08:47)
[2020-03-20] MEDS: METOPROLOL SUCC *XL* 25MG TAB (TopROL *XL*) PO SCH ×2 (08:48→22:14)
--- NOTE | 2020-03-20 09:10 | MHIPNPDOC ---
[facility] Progress Note Progress Note Inpatient Progress Note Shlomo Damon MRN: N/A Date of : N/A Date of Service: 03/20/2020 History of Present Illness The patient is a 64-year-old woman with a history of schizophrenia presents after stopping her risperidone. She reports she became paranoid, worried and fear that people are out to get here. Her family brought her in as she became more disabled by her paranoia and reported difficulties feeling that people are watching her. She is able to express these more effectively, but generally attempts to hide the severity. Interval History The patient was attempted to be met with today, however, she has had significant agitation and was screaming for the majority in the morning. She continues to be quite paranoid and that she is going to be injected with "coronavirus." She had to be restrained over the weekend due to her severe agitation and continues to be wholly unamenable to treatment due to her severe paranoia. Review Of Systems Unable to obtain. Psychotherapy None on this visit. Vital Signs Reviewed. Mental Status Examination Patient unable to be interviewed, screams prior to entering the room. Diagnoses Schizophrenia. Assessment and Plan Schizophrenia: We will need to consider alternative agent as it does not appear to be as helpful, Zyprexa could be more helpful, however, will need to ascertain more about the patient's current situation. Disposition Patient will need further inpatient treatment under involuntary status, as she is paranoid and quite disabled by her psychosis, unable to engage in any meaningful discussion. Time Spent 15 minutes. Friday Vital Signs Vital Signs Date Time Temp Pulse Resp B/P (MAP) Pulse Ox O2 Delivery O2 Flow Rate FiO2 03/20/20 08:48 84 125/67 03/20/20 06:27 97.9 16 03/19/20 06:35 99 Room Air Laboratory Data 24H Labs Laboratory Tests 2 03/19/20 12:08: Bedside Glucose (Misc Panel) 100 03/19/20 16:54: Bedside Glucose (Misc Panel) 231H 03/19/20 21:25: Bedside Glucose (Misc Panel) 86 03/20/20 06:20: Bedside Glucose (Misc Panel) 108 Current Medications Current Medications Medications (Trade) Dose Ordered Sig/Ayesha Route PRN Reason Start Time Stop Time Status Last Admin Dose Admin Acetaminophen (Tylenol Tab) 650 mg Q6HP PRN PO HEADACHE or DISCOMFORT 03/13/20 22:45 Al Hydrox/Mg Hydrox/Simethicone (Mylanta) 30 ml Q4HP PRN PO HEARTBURN/INDIGESTION 03/13/20 22:45 Aripiprazole (AbiLIFY) 5 mg QHS PO 03/17/20 21:00 03/19/20 21:29 Dextrose (Dextrose 50%) 25 ml ASDIRECTED PRN IV SEE LABEL COMMENTS 03/14/20 09:15 Glucagon (Glucagon) 1 mg ASDIRECTED PRN SC SEE LABEL COMMENTS 03/14/20 09:15 Glucose (Glucose) 16 GM ASDIRECTED PRN PO SEE LABEL COMMENTS 03/14/20 09:15 Glyburide (Diabeta, Micronase) 5 mg DAILY@1730 PO 03/14/20 17:30 03/18/20 17:23 Glyburide (Diabeta, Micronase) 10 mg DAILY@0730 PO 03/14/20 07:30 03/20/20 07:11 Haloperidol (Haldol) 0.5 mg Q4HP PRN PO AGITATION 03/17/20 09:30 Haloperidol (Haldol) 2 mg STAT STAT PO 03/18/20 20:00 03/18/20 20:01 DC Haloperidol (Haldol) 3 mg STAT STAT IM 03/18/20 20:12 03/18/20 20:14 DC 03/18/20 20:19 Haloperidol (Haldol) 5 mg STAT STAT IM 03/18/20 20:09 03/18/20 20:10 Cancel Home Med (Med Rec Complete!) ASDIRECTED XX 03/13/20 23:30 03/13/20 23:43 DC Insulin Human Lispro (HumaLOG INSULIN) SEE PROTOCOL TABLE AC SC 03/14/20 12:00 03/18/20 17:23 Insulin Human Lispro (HumaLOG INSULIN) SEE PROTOCOL TABLE QHS SC 03/14/20 21:00 Lisinopril (Prinivil) 5 mg DAILY PO 03/14/20 09:00 03/20/20 08:47 Lorazepam (Ativan) 1 mg STAT STAT IM 03/18/20 20:00 03/18/20 20:01 Cancel Lorazepam (Ativan) 1 mg STAT STAT IM 03/18/20 20:09 03/18/20 20:11 DC 03/18/20 20:19 Lorazepam (Ativan) 1 mg STAT STAT PO 03/18/20 18:41 03/18/20 18:44 DC Magnesium Hydroxide (Milk Of Magnesia) 30 ml DAILYPRN PRN PO CONSTIPATION 03/13/20 22:45 Metformin HCl (Glucophage) 1,000 mg BID@0800,1800 PO 03/14/20 08:00 03/20/20 08:43 Metoprolol Succinate (TopROL XL) 25 mg BID PO 03/14/20 09:00 03/20/20 08:48 Olanzapine (ZyPREXA ZYDIS) 5 mg STAT STAT PO 03/18/20 18:49 03/18/20 18:50 DC Risperidone (RisperDAL) 0.25 mg BID PO 03/13/20 21:00 03/15/20 16:32 DC 03/15/20 08:57 Risperidone (RisperDAL) 0.5 mg BID PO 03/15/20 21:00 03/17/20 09:51 DC 03/17/20 09:00 Sertraline HCl (Zoloft) 12.5 mg DAILY PO 03/14/20 09:00 03/20/20 08:43 Trazodone HCl (Desyrel) 50 mg QHSP PRN PO INSOMNIA 03/13/20 22:45 03/17/20 04:20 Allergies Coded Allergies: amoxicillin (Verified Allergy, Unknown, 03/13/20) aspirin (Verified Allergy, Unknown, 03/13/20) YURI MADRIGAL DO March 20, 2020 09:10
[2020-03-20 15:33] VITALS: BP 144/71
[2020-03-21 06:11] VITALS: BP 124/59
[2020-03-21] MEDS: glyBURIDE 2.5 MG TAB PO SCH ×2 (06:43→17:10)
[2020-03-21] MEDS: HumaLOG INSULIN (NovoLOG) PER UNIT SC SCH ×4 (06:43→21:00)
[2020-03-21] MEDS: SERTRALINE HCL 25 MG TABLET PO SCH (08:48)
[2020-03-21] MEDS: metFORMIN (GLUCOPHAGE) 1000 MG TABLET PO SCH ×2 (08:51→17:10)
[2020-03-21] MEDS: lisinopriL 5 MG TAB PO SCH (08:51)
[2020-03-21] MEDS: METOPROLOL SUCC *XL* 25MG TAB (TopROL *XL*) PO SCH ×2 (08:51→22:31)
--- NOTE | 2020-03-21 09:44 | MHIPNPDOC ---
[facility] Progress Note Progress Note Inpatient Progress Note Shlomo Damon MRN: N/A Date of : N/A Date of Service: 03/21/2020 History of Present Illness The patient is a 64-year-old woman with a history of schizophrenia presents after stopping her risperidone. She reports she became paranoid, worried and fear that people are out to get here. Her family brought her in as she became more disabled by her paranoia and reported difficulties feeling that people are watching her. She is able to express these more effectively, but generally attempts to hide the severity. Interval History The patient was attempted to be met with today. However, she refuses she still paranoid feeling that people will be trying to inject her with coronavirus. Her family reports that she has a long history of psychosis. She has had multiple episodes of screaming today. Review Of Systems Unable to obtain. Psychotherapy None on this visit. Vital Signs Reviewed. Mental Status Examination Patient unable to be interviewed, screams prior to entering the room. Diagnoses Schizophrenia. Assessment and Plan Schizophrenia: Will consider clozapine as an alternative to Abilify if she does not continue to make any improvement. Disposition Patient will need further inpatient treatment under involuntary status, as she is paranoid and quite disabled by her psychosis, unable to engage in any meaningful discussion. Time Spent 15 minutes. Friday Vital Signs Vital Signs Date Time Temp Pulse Resp B/P (MAP) Pulse Ox O2 Delivery O2 Flow Rate FiO2 03/21/20 08:51 82 163/83 03/21/20 06:11 97.6 16 99 Room Air Laboratory Data 24H Labs Laboratory Tests 2 03/20/20 11:58: Bedside Glucose (Misc Panel) 91 03/20/20 16:20: Bedside Glucose (Misc Panel) 154H 03/20/20 22:37: Bedside Glucose (Misc Panel) 191H 03/21/20 06:02: Bedside Glucose (Misc Panel) 140H Current Medications Current Medications Medications (Trade) Dose Ordered Sig/Ayesha Route PRN Reason Start Time Stop Time Status Last Admin Dose Admin Acetaminophen (Tylenol Tab) 650 mg Q6HP PRN PO HEADACHE or DISCOMFORT 03/13/20 22:45 Al Hydrox/Mg Hydrox/Simethicone (Mylanta) 30 ml Q4HP PRN PO HEARTBURN/INDIGESTION 03/13/20 22:45 Aripiprazole (AbiLIFY) 5 mg QHS PO 03/17/20 21:00 03/20/20 22:13 Dextrose (Dextrose 50%) 25 ml ASDIRECTED PRN IV SEE LABEL COMMENTS 03/14/20 09:15 Glucagon (Glucagon) 1 mg ASDIRECTED PRN SC SEE LABEL COMMENTS 03/14/20 09:15 Glucose (Glucose) 16 GM ASDIRECTED PRN PO SEE LABEL COMMENTS 03/14/20 09:15 Glyburide (Diabeta, Micronase) 5 mg DAILY@1730 PO 03/14/20 17:30 03/20/20 17:21 Glyburide (Diabeta, Micronase) 10 mg DAILY@0730 PO 03/14/20 07:30 03/21/20 06:43 Haloperidol (Haldol) 0.5 mg Q4HP PRN PO AGITATION 03/17/20 09:30 Haloperidol (Haldol) 2 mg STAT STAT PO 03/18/20 20:00 03/18/20 20:01 DC Haloperidol (Haldol) 3 mg STAT STAT IM 03/18/20 20:12 03/18/20 20:14 DC 03/18/20 20:19 Haloperidol (Haldol) 5 mg STAT STAT IM 03/18/20 20:09 03/18/20 20:10 Cancel Home Med (Med Rec Complete!) ASDIRECTED XX 03/13/20 23:30 03/13/20 23:43 DC Insulin Human Lispro (HumaLOG INSULIN) SEE PROTOCOL TABLE AC SC 03/14/20 12:00 03/21/20 06:43 Insulin Human Lispro (HumaLOG INSULIN) SEE PROTOCOL TABLE QHS SC 03/14/20 21:00 Lisinopril (Prinivil) 5 mg DAILY PO 03/14/20 09:00 03/21/20 08:51 Lorazepam (Ativan) 1 mg STAT STAT IM 03/18/20 20:00 03/18/20 20:01 Cancel Lorazepam (Ativan) 1 mg STAT STAT IM 03/18/20 20:09 03/18/20 20:11 DC 03/18/20 20:19 Lorazepam (Ativan) 1 mg STAT STAT PO 03/18/20 18:41 03/18/20 18:44 DC Magnesium Hydroxide (Milk Of Magnesia) 30 ml DAILYPRN PRN PO CONSTIPATION 03/13/20 22:45 Metformin HCl (Glucophage) 1,000 mg BID@0800,1800 PO 03/14/20 08:00 03/21/20 08:51 Metoprolol Succinate (TopROL XL) 25 mg BID PO 03/14/20 09:00 03/21/20 08:51 Olanzapine (ZyPREXA ZYDIS) 5 mg STAT STAT PO 03/18/20 18:49 03/18/20 18:50 DC Risperidone (RisperDAL) 0.25 mg BID PO 03/13/20 21:00 03/15/20 16:32 DC 03/15/20 08:57 Risperidone (RisperDAL) 0.5 mg BID PO 03/15/20 21:00 03/17/20 09:51 DC 03/17/20 09:00 Sertraline HCl (Zoloft) 12.5 mg DAILY PO 03/14/20 09:00 03/21/20 08:48 Trazodone HCl (Desyrel) 50 mg QHSP PRN PO INSOMNIA 03/13/20 22:45 03/17/20 04:20 Allergies Coded Allergies: amoxicillin (Verified Allergy, Unknown, 03/13/20) aspirin (Verified Allergy, Unknown, 03/13/20) YURI MADRIGAL DO March 21, 2020 09:44
[2020-03-21 15:28] VITALS: BP 157/74
[2020-03-22] MEDS: glyBURIDE 2.5 MG TAB PO SCH ×2 (06:44→17:39)
[2020-03-22 06:46] VITALS: BP 131/63
[2020-03-22] MEDS: HumaLOG INSULIN (NovoLOG) PER UNIT SC SCH ×4 (06:51→20:43)
[2020-03-22] MEDS: SERTRALINE HCL 25 MG TABLET PO SCH (08:57)
[2020-03-22] MEDS: lisinopriL 5 MG TAB PO SCH (08:57)
[2020-03-22] MEDS: metFORMIN (GLUCOPHAGE) 1000 MG TABLET PO SCH ×2 (08:57→17:39)
[2020-03-22] MEDS: METOPROLOL SUCC *XL* 25MG TAB (TopROL *XL*) PO SCH ×2 (08:58→20:41)
--- NOTE | 2020-03-22 09:12 | MHIPNPDOC ---
[facility] Progress Note Progress Note Inpatient Progress Note Shlomo Damon MRN: N/A Date of : N/A Date of Service: 03/22/2020 History of Present Illness The patient is a 64-year-old woman with a history of schizophrenia presents after stopping her risperidone. She reports she became paranoid, worried and fear that people are out to get here. Her family brought her in as she became more disabled by her paranoia and reported difficulties feeling that people are watching her. She is able to express these more effectively, but generally attempts to hide the severity. Interval History The patient is met with today. She reports she is feeling "better". She continues to ask to leave today. She has had a better day, prior to her day today. She is still had some paranoia but does appear to be more lucid today. Discussing her fears and her wants to return home. Review Of Systems General: Denies fever or appetite changes Cardiovascular: Denies Chest pain or palpations GI: Denies Nausea, vomiting, or bowel changes Respiratory: Denies shortness of breath or cough Neuro: Denies dizziness, tremors Derm: Denies any rashes or pruritus : Denies any dysuria or urinary problems MSK: Denies any muscle tightness or stiffness HEENT: Denies any vision changes or headaches Psychotherapy None on this visit. Vital Signs Reviewed. Mental Status Examination General: Well dressed with good hygiene Speech: Spontaneous and fluid Thought processes: Linear and logical MSK: Smooth and coordinated gait, no signs of tremors or involuntary orofacial movements Thought content: Future orientated Abstract reasoning, and computation: Intact Description of associations: Intact Description of abnormal or psychotic thoughts: Denies any suicidal or homicidal ideation. Denies any auditory or visual hallucinations. Does not appear to be responding to internal stimuli. Does not appear to be endorsing any bizarre or paranoid ideation. Judgment: improved Insight: improved Orientation: Alert and orientated 3 Cognition: Grossly normal Recent and remote memory: Intact Attention span and concentration: Intact Fund of knowledge: Adequate Mood: "okay" Affect: Mildly flat Diagnoses Schizophrenia. Assessment and Plan Schizophrenia: Continue Abilify 5 mg nightly, will continue to monitor as patient does have periods of lucidity that generally vanish with increased paranoia. Will change to Clozaril if patient does not continue to improve Disposition Observation overnight. If she continues to improve, potential discharge on Friday if there is no further episodes of paranoia or behavioral problems Time Spent 15 minutes Friday Vital Signs Vital Signs Date Time Temp Pulse Resp B/P (MAP) Pulse Ox O2 Delivery O2 Flow Rate FiO2 03/22/20 08:58 68 131/63 03/22/20 06:46 98.1 12 03/21/20 06:11 99 Room Air Laboratory Data 24H Labs Laboratory Tests 2 03/21/20 12:03: Bedside Glucose (Misc Panel) 141H 03/21/20 17:06: Bedside Glucose (Misc Panel) 129H 03/21/20 22:36: Bedside Glucose (Misc Panel) 150H 03/22/20 06:49: Bedside Glucose (Misc Panel) 100 Current Medications Current Medications Medications (Trade) Dose Ordered Sig/Ayesha Route PRN Reason Start Time Stop Time Status Last Admin Dose Admin Acetaminophen (Tylenol Tab) 650 mg Q6HP PRN PO HEADACHE or DISCOMFORT 03/13/20 22:45 Al Hydrox/Mg Hydrox/Simethicone (Mylanta) 30 ml Q4HP PRN PO HEARTBURN/INDIGESTION 03/13/20 22:45 Aripiprazole (AbiLIFY) 5 mg QHS PO 03/17/20 21:00 03/21/20 22:31 Dextrose (Dextrose 50%) 25 ml ASDIRECTED PRN IV SEE LABEL COMMENTS 03/14/20 09:15 Glucagon (Glucagon) 1 mg ASDIRECTED PRN SC SEE LABEL COMMENTS 03/14/20 09:15 Glucose (Glucose) 16 GM ASDIRECTED PRN PO SEE LABEL COMMENTS 03/14/20 09:15 Glyburide (Diabeta, Micronase) 5 mg DAILY@1730 PO 03/14/20 17:30 03/21/20 17:10 Glyburide (Diabeta, Micronase) 10 mg DAILY@0730 PO 03/14/20 07:30 03/22/20 06:44 Haloperidol (Haldol) 0.5 mg Q4HP PRN PO AGITATION 03/17/20 09:30 Haloperidol (Haldol) 2 mg STAT STAT PO 03/18/20 20:00 03/18/20 20:01 DC Haloperidol (Haldol) 3 mg STAT STAT IM 03/18/20 20:12 5/2/20 20:14 DC 03/18/20 20:19 Haloperidol (Haldol) 5 mg STAT STAT IM 03/18/20 20:09 03/18/20 20:10 Cancel Home Med (Med Rec Complete!) ASDIRECTED XX 03/13/20 23:30 03/13/20 23:43 DC Insulin Human Lispro (HumaLOG INSULIN) SEE PROTOCOL TABLE AC SC 03/14/20 12:00 03/21/20 06:43 Insulin Human Lispro (HumaLOG INSULIN) SEE PROTOCOL TABLE QHS SC 03/14/20 21:00 Lisinopril (Prinivil) 5 mg DAILY PO 03/14/20 09:00 03/22/20 08:57 Lorazepam (Ativan) 1 mg STAT STAT IM 03/18/20 20:00 03/18/20 20:01 Cancel Lorazepam (Ativan) 1 mg STAT STAT IM 03/18/20 20:09 03/18/20 20:11 DC 03/18/20 20:19 Lorazepam (Ativan) 1 mg STAT STAT PO 03/18/20 18:41 03/18/20 18:44 DC Magnesium Hydroxide (Milk Of Magnesia) 30 ml DAILYPRN PRN PO CONSTIPATION 03/13/20 22:45 Metformin HCl (Glucophage) 1,000 mg BID@0800,1800 PO 03/14/20 08:00 03/22/20 08:57 Metoprolol Succinate (TopROL XL) 25 mg BID PO 03/14/20 09:00 03/22/20 08:58 Olanzapine (ZyPREXA ZYDIS) 5 mg STAT STAT PO 03/18/20 18:49 03/18/20 18:50 DC Risperidone (RisperDAL) 0.25 mg BID PO 03/13/20 21:00 03/15/20 16:32 DC 03/15/20 08:57 Risperidone (RisperDAL) 0.5 mg BID PO 03/15/20 21:00 03/17/20 09:51 DC 03/17/20 09:00 Sertraline HCl (Zoloft) 12.5 mg DAILY PO 03/14/20 09:00 03/22/20 08:57 Trazodone HCl (Desyrel) 50 mg QHSP PRN PO INSOMNIA 03/13/20 22:45 03/17/20 04:20 Allergies Coded Allergies: amoxicillin (Verified Allergy, Unknown, 03/13/20) aspirin (Verified Allergy, Unknown, 03/13/20) YURI MADRIGAL DO March 22, 2020 09:12
[2020-03-22 15:46] VITALS: BP 113/62
[2020-03-22] MEDS ORDERED: cloZAPine 25 MG TAB (S0136) PO SCH (21:00)
[2020-03-23 06:10] VITALS: BP 143/66
[2020-03-23] MEDS: haloperidoL 0.5 MG TAB PO PRN (06:25)
[2020-03-23] MEDS ORDERED: diphenhydrAMINE 50MG CAP PO STA ×2 (06:36→19:18)
[2020-03-23] MEDS: glyBURIDE 2.5 MG TAB PO SCH ×2 (06:36→17:35)
[2020-03-23] MEDS ORDERED: LORazepam 1 MG TAB PO STA (06:36)
[2020-03-23] MEDS: HumaLOG INSULIN (NovoLOG) PER UNIT SC SCH ×4 (06:45→20:03)
[2020-03-23] MEDS: metFORMIN (GLUCOPHAGE) 1000 MG TABLET PO SCH ×2 (08:00→17:35)
[2020-03-23] MEDS: SERTRALINE HCL 25 MG TABLET PO SCH (09:00)
[2020-03-23] MEDS: lisinopriL 5 MG TAB PO SCH (09:00)
[2020-03-23] MEDS: METOPROLOL SUCC *XL* 25MG TAB (TopROL *XL*) PO SCH ×2 (09:00→20:02)
--- NOTE | 2020-03-23 09:32 | MHIPNPDOC ---
[facility] Progress Note Progress Note Inpatient Progress Note Shlomo Damon MRN: N/A Date of : N/A Date of Service: 03/23/2020 History of Present Illness The patient is a 64-year-old woman with a history of schizophrenia presents after stopping her risperidone. She reports she became paranoid, worried and fear that people are out to get here. Her family brought her in as she became more disabled by her paranoia and reported difficulties feeling that people are watching her. She is able to express these more effectively, but generally attempts to hide the severity. Interval History The patient was attempted to be met with today. However, she had decompensated overnight becoming extremely paranoid. She had barricade herself in the room prior to meeting with her and had required sedation. She was too sedated to meet with today secondary to needing emergency medicine. Review Of Systems Unknown. Psychotherapy None on this visit. Vital Signs Reviewed. Mental Status Examination Patient sedated. Diagnoses Schizophrenia. Assessment and Plan Schizophrenia: Discontinue Abilify. We will start clozapine 12.5 mg nightly. Patient is not making significant improvements. CBC normal on admission. Disposition Patient will need to be continued on involuntary admission likely past Friday. She is too sick in order to make a safe discharge plan. Time Spent 15 minutes. Vital Signs Vital Signs Date Time Temp Pulse Resp B/P (MAP) Pulse Ox O2 Delivery O2 Flow Rate FiO2 03/23/20 06:10 97.8 72 14 143/66 (91) Room Air 03/21/20 06:11 99 Laboratory Data 24H Labs Laboratory Tests 2 03/22/20 11:55: Bedside Glucose (Misc Panel) 106 03/22/20 17:29: Bedside Glucose (Misc Panel) 119H 03/22/20 20:42: Bedside Glucose (Misc Panel) 111 03/23/20 06:26: Bedside Glucose (Misc Panel) 134H Current Medications Current Medications Medications (Trade) Dose Ordered Sig/Ayesha Route PRN Reason Start Time Stop Time Status Last Admin Dose Admin Acetaminophen (Tylenol Tab) 650 mg Q6HP PRN PO HEADACHE or DISCOMFORT 03/13/20 22:45 Al Hydrox/Mg Hydrox/Simethicone (Mylanta) 30 ml Q4HP PRN PO HEARTBURN/INDIGESTION 03/13/20 22:45 Aripiprazole (AbiLIFY) 5 mg QHS PO 03/17/20 21:00 03/22/20 09:21 DC 03/21/20 22:31 Aripiprazole (AbiLIFY) 5 mg QHS PO 03/22/20 21:00 03/23/20 09:20 DC 03/22/20 20:41 Clozapine (Clozaril) 12.5 mg QHS PO 03/22/20 21:00 03/22/20 15:56 DC Clozapine (Clozaril) 12.5 mg QHS PO 03/23/20 21:00 Dextrose (Dextrose 50%) 25 ml ASDIRECTED PRN IV SEE LABEL COMMENTS 03/14/20 09:15 Diphenhydramine HCl (Benadryl) 50 mg STAT STAT PO 03/23/20 06:36 03/23/20 06:38 DC 03/23/20 06:42 Glucagon (Glucagon) 1 mg ASDIRECTED PRN SC SEE LABEL COMMENTS 03/14/20 09:15 Glucose (Glucose) 16 GM ASDIRECTED PRN PO SEE LABEL COMMENTS 03/14/20 09:15 Glyburide (Diabeta, Micronase) 5 mg DAILY@1730 PO 03/14/20 17:30 03/22/20 17:39 Glyburide (Diabeta, Micronase) 10 mg DAILY@0730 PO 03/14/20 07:30 03/23/20 06:36 Haloperidol (Haldol) 0.5 mg Q4HP PRN PO AGITATION 03/17/20 09:30 03/23/20 06:25 Haloperidol (Haldol) 2 mg STAT STAT PO 03/18/20 20:00 03/18/20 20:01 DC Haloperidol (Haldol) 3 mg STAT STAT IM 03/18/20 20:12 03/18/20 20:14 DC 03/18/20 20:19 Haloperidol (Haldol) 5 mg STAT STAT IM 03/18/20 20:09 03/18/20 20:10 Cancel Haloperidol (Haldol) 10 mg STAT STAT PO 03/23/20 06:36 03/23/20 06:38 DC 03/23/20 06:42 Home Med (Med Rec Complete!) ASDIRECTED XX 03/13/20 23:30 03/13/20 23:43 DC Insulin Human Lispro (HumaLOG INSULIN) SEE PROTOCOL TABLE AC SC 03/14/20 12:00 03/21/20 06:43 Insulin Human Lispro (HumaLOG INSULIN) SEE PROTOCOL TABLE QHS SC 03/14/20 21:00 Lisinopril (Prinivil) 5 mg DAILY PO 03/14/20 09:00 03/22/20 08:57 Lorazepam (Ativan) 1 mg STAT STAT IM 03/18/20 20:00 03/18/20 20:01 Cancel Lorazepam (Ativan) 1 mg STAT STAT IM 03/18/20 20:09 03/18/20 20:11 DC 03/18/20 20:19 Lorazepam (Ativan) 1 mg STAT STAT PO 03/18/20 18:41 03/18/20 18:44 DC Lorazepam (Ativan) 1 mg STAT STAT PO 03/23/20 06:36 03/23/20 06:38 DC 03/23/20 06:42 Magnesium Hydroxide (Milk Of Magnesia) 30 ml DAILYPRN PRN PO CONSTIPATION 03/13/20 22:45 Metformin HCl (Glucophage) 1,000 mg BID@0800,1800 PO 03/14/20 08:00 03/22/20 17:39 Metoprolol Succinate (TopROL XL) 25 mg BID PO 03/14/20 09:00 03/22/20 20:41 Olanzapine (ZyPREXA ZYDIS) 5 mg STAT STAT PO 03/18/20 18:49 03/18/20 18:50 DC Risperidone (RisperDAL) 0.25 mg BID PO 03/13/20 21:00 03/15/20 16:32 DC 03/15/20 08:57 Risperidone (RisperDAL) 0.5 mg BID PO 03/15/20 21:00 03/17/20 09:51 DC 03/17/20 09:00 Sertraline HCl (Zoloft) 12.5 mg DAILY PO 03/14/20 09:00 03/22/20 08:57 Trazodone HCl (Desyrel) 50 mg QHSP PRN PO INSOMNIA 03/13/20 22:45 03/17/20 04:20 Allergies Coded Allergies: amoxicillin (Verified Allergy, Unknown, 03/13/20) aspirin (Verified Allergy, Unknown, 03/13/20) YURI MADRIGAL DO March 23, 2020 09:32
[2020-03-23 16:03] VITALS: BP 113/63
[2020-03-23] MEDS ORDERED: LORazepam 2 MG TAB PO STA (19:18)
[2020-03-23] MEDS: cloZAPine 25 MG TAB (S0136) PO SCH (20:02)
[2020-03-24 06:07] VITALS: BP 124/72
[2020-03-24] MEDS: HumaLOG INSULIN (NovoLOG) PER UNIT SC SCH ×4 (07:19→20:53)
[2020-03-24] MEDS: glyBURIDE 2.5 MG TAB PO SCH ×2 (07:19→18:23)
[2020-03-24] MEDS: metFORMIN (GLUCOPHAGE) 1000 MG TABLET PO SCH ×2 (09:34→18:23)
[2020-03-24] MEDS: SERTRALINE HCL 25 MG TABLET PO SCH (09:44)
[2020-03-24] MEDS: lisinopriL 5 MG TAB PO SCH (09:44)
[2020-03-24] MEDS: METOPROLOL SUCC *XL* 25MG TAB (TopROL *XL*) PO SCH ×2 (09:44→20:49)
--- NOTE | 2020-03-24 09:56 | MHIPNPDOC ---
[facility] Progress Note Progress Note Inpatient Progress Note Shlomo Damon MRN: N/A Date of : N/A Date of Service: 03/24/2020 History of Present Illness The patient is a 64-year-old woman with a history of schizophrenia presents after stopping her risperidone. She reports she became paranoid, worried and fear that people are out to get here. Her family brought her in as she became more disabled by her paranoia and reported difficulties feeling that people are watching her. She is able to express these more effectively, but generally attempts to hide the severity. Interval History The patient is met with today. She has had multiple instances of being sedated and extremely aggressive, continues on a one to one. The patient asks about when she can leave and states she is not mentally ill and wants to leave. She is unable to engage in any meaningful interview today. Review Of Systems Unable to ascertain due to mental status. Psychotherapy None on this visit. Vital Signs Reviewed. Mental Status Examination General: Well dressed with good hygiene Speech: Nearly mute Thought processes: Tangential MSK: Smooth and coordinated gait, no signs of tremors or involuntary orofacial movements Thought content: Paranoid Abstract reasoning, and computation: Intact Description of associations: Intact Description of abnormal or psychotic thoughts: Paranoid thoughts Judgment: Impaired Insight: Impaired Orientation: Alert and orientated 3 Cognition: Grossly normal Recent and remote memory: Intact Attention span and concentration: Impaired Fund of knowledge: Adequate Mood: "okay" Affect: Flat with little reactivity Diagnoses Schizophrenia. Assessment and Plan Schizophrenia: Continue clozapine 12.5 mg nightly. Disposition Patient will need to be continued on involuntary admission likely past Friday. She is too sick in order to make a safe discharge plan. Time Spent 15 minutes. Friday Vital Signs Vital Signs Date Time Temp Pulse Resp B/P (MAP) Pulse Ox O2 Delivery O2 Flow Rate FiO2 03/24/20 09:44 71 131/60 03/24/20 06:07 98.4 12 96 Room Air Laboratory Data 24H Labs Laboratory Tests 2 03/23/20 11:40: Bedside Glucose (Misc Panel) 90 03/23/20 16:45: Bedside Glucose (Misc Panel) 229H Current Medications Current Medications Medications (Trade) Dose Ordered Sig/Ayesha Route PRN Reason Start Time Stop Time Status Last Admin Dose Admin Acetaminophen (Tylenol Tab) 650 mg Q6HP PRN PO HEADACHE or DISCOMFORT 03/13/20 22:45 Al Hydrox/Mg Hydrox/Simethicone (Mylanta) 30 ml Q4HP PRN PO HEARTBURN/INDIGESTION 03/13/20 22:45 Aripiprazole (AbiLIFY) 5 mg QHS PO 03/17/20 21:00 03/22/20 09:21 DC 03/21/20 22:31 Aripiprazole (AbiLIFY) 5 mg QHS PO 03/22/20 21:00 03/23/20 09:20 DC 03/22/20 20:41 Clozapine (Clozaril) 12.5 mg QHS PO 03/22/20 21:00 03/22/20 15:56 DC Clozapine (Clozaril) 12.5 mg QHS PO 03/23/20 21:00 03/23/20 20:02 Dextrose (Dextrose 50%) 25 ml ASDIRECTED PRN IV SEE LABEL COMMENTS 03/14/20 09:15 Diphenhydramine HCl (Benadryl) 50 mg STAT STAT PO 03/23/20 06:36 03/23/20 06:38 DC 03/23/20 06:42 Diphenhydramine HCl (Benadryl) 50 mg STAT STAT PO 03/23/20 19:18 03/23/20 19:20 DC 03/23/20 19:25 Glucagon (Glucagon) 1 mg ASDIRECTED PRN SC SEE LABEL COMMENTS 03/14/20 09:15 Glucose (Glucose) 16 GM ASDIRECTED PRN PO SEE LABEL COMMENTS 03/14/20 09:15 Glyburide (Diabeta, Micronase) 5 mg DAILY@1730 PO 03/14/20 17:30 03/23/20 17:35 Glyburide (Diabeta, Micronase) 10 mg DAILY@0730 PO 03/14/20 07:30 03/23/20 06:36 Haloperidol (Haldol) 0.5 mg Q4HP PRN PO AGITATION 03/17/20 09:30 03/23/20 06:25 Haloperidol (Haldol) 2 mg STAT STAT PO 03/18/20 20:00 03/18/20 20:01 DC Haloperidol (Haldol) 3 mg STAT STAT IM 03/18/20 20:12 03/18/20 20:14 DC 03/18/20 20:19 Haloperidol (Haldol) 5 mg STAT STAT IM 03/18/20 20:09 03/18/20 20:10 Cancel Haloperidol (Haldol) 10 mg STAT STAT PO 03/23/20 06:36 03/23/20 06:38 DC 03/23/20 06:42 Haloperidol (Haldol) 10 mg STAT STAT PO 03/23/20 19:18 03/23/20 19:20 DC 03/23/20 19:25 Home Med (Med Rec Complete!) ASDIRECTED XX 03/13/20 23:30 03/13/20 23:43 DC Insulin Human Lispro (HumaLOG INSULIN) SEE PROTOCOL TABLE AC UT 03/14/20 12:00 03/21/20 06:43 Insulin Human Lispro (HumaLOG INSULIN) SEE PROTOCOL TABLE QHS UT 03/14/20 21:00 Lisinopril (Prinivil) 5 mg DAILY PO 03/14/20 09:00 03/24/20 09:44 Lorazepam (Ativan) 1 mg STAT STAT IM 03/18/20 20:00 03/18/20 20:01 Cancel Lorazepam (Ativan) 1 mg STAT STAT IM 03/18/20 20:09 03/18/20 20:11 DC 03/18/20 20:19 Lorazepam (Ativan) 1 mg STAT STAT PO 03/18/20 18:41 03/18/20 18:44 DC Lorazepam (Ativan) 1 mg STAT STAT PO 03/23/20 06:36 03/23/20 06:38 DC 03/23/20 06:42 Lorazepam (Ativan) 2 mg STAT STAT PO 03/23/20 19:18 03/23/20 19:20 DC 03/23/20 19:25 Magnesium Hydroxide (Milk Of Magnesia) 30 ml DAILYPRN PRN PO CONSTIPATION 03/13/20 22:45 Metformin HCl (Glucophage) 1,000 mg BID@0800,1800 PO 03/14/20 08:00 03/24/20 09:34 Metoprolol Succinate (TopROL XL) 25 mg BID PO 03/14/20 09:00 03/24/20 09:44 Olanzapine (ZyPREXA ZYDIS) 5 mg STAT STAT PO 03/18/20 18:49 5/2/20 18:50 DC Risperidone (RisperDAL) 0.25 mg BID PO 03/13/20 21:00 03/15/20 16:32 DC 03/15/20 08:57 Risperidone (RisperDAL) 0.5 mg BID PO 03/15/20 21:00 03/17/20 09:51 DC 03/17/20 09:00 Sertraline HCl (Zoloft) 12.5 mg DAILY PO 03/14/20 09:00 03/24/20 09:44 Trazodone HCl (Desyrel) 50 mg QHSP PRN PO INSOMNIA 03/13/20 22:45 03/17/20 04:20 Allergies Coded Allergies: amoxicillin (Verified Allergy, Unknown, 03/13/20) aspirin (Verified Allergy, Unknown, 03/13/20) YURI MADRIGAL DO March 24, 2020 09:56
[2020-03-24] MEDS: cloZAPine 25 MG TAB (S0136) PO SCH (20:50)
[2020-03-24] MEDS: PILL CUTTER 1 EACH XX PRN (20:50)
[2020-03-25 06:32] VITALS: BP 134/87
[2020-03-25] MEDS: glyBURIDE 2.5 MG TAB PO SCH ×2 (06:43→17:12)
[2020-03-25] MEDS: HumaLOG INSULIN (NovoLOG) PER UNIT SC SCH ×4 (06:46→21:00)
[2020-03-25] MEDS: metFORMIN (GLUCOPHAGE) 1000 MG TABLET PO SCH ×2 (08:38→17:12)
[2020-03-25] MEDS: SERTRALINE HCL 25 MG TABLET PO SCH (08:38)
[2020-03-25] MEDS: lisinopriL 5 MG TAB PO SCH (08:45)
[2020-03-25] MEDS: METOPROLOL SUCC *XL* 25MG TAB (TopROL *XL*) PO SCH ×2 (08:46→20:59)
[2020-03-25 16:16] VITALS: BP 140/65
[2020-03-25] MEDS: cloZAPine 25 MG TAB (S0136) PO SCH (20:58)
[2020-03-26 06:32] VITALS: BP_SYST 148; BP_SYST 161; BP_DIAS 81; BP_DIAS 88
[2020-03-26] MEDS: HumaLOG INSULIN (NovoLOG) PER UNIT SC SCH ×4 (07:13→21:00)
[2020-03-26] MEDS: glyBURIDE 2.5 MG TAB PO SCH ×2 (07:16→17:16)
[2020-03-26] MEDS: SERTRALINE HCL 25 MG TABLET PO SCH (08:27)
[2020-03-26] MEDS: metFORMIN (GLUCOPHAGE) 1000 MG TABLET PO SCH ×2 (08:27→17:14)
[2020-03-26] MEDS: lisinopriL 5 MG TAB PO SCH (08:27)
[2020-03-26] MEDS: METOPROLOL SUCC *XL* 25MG TAB (TopROL *XL*) PO SCH ×2 (08:28→21:07)
[2020-03-26 15:22] VITALS: BP 158/66
[2020-03-26] MEDS: cloZAPine 25 MG TAB (S0136) PO SCH (21:07)
[2020-03-27 06:23] VITALS: BP 130/64
[2020-03-27] MEDS: HumaLOG INSULIN (NovoLOG) PER UNIT SC SCH ×4 (06:34→20:06)
[2020-03-27] MEDS: glyBURIDE 2.5 MG TAB PO SCH ×2 (06:40→17:44)
[2020-03-27] MEDS: PILL CUTTER 1 EACH XX PRN (08:15)
[2020-03-27] MEDS: SERTRALINE HCL 25 MG TABLET PO SCH (08:16)
[2020-03-27] MEDS: metFORMIN (GLUCOPHAGE) 1000 MG TABLET PO SCH ×2 (08:16→17:44)
[2020-03-27] MEDS: lisinopriL 5 MG TAB PO SCH (08:16)
[2020-03-27] MEDS: METOPROLOL SUCC *XL* 25MG TAB (TopROL *XL*) PO SCH ×2 (08:17→20:06)
--- NOTE | 2020-03-27 09:50 | MHIPNPDOC ---
[facility] Progress Note Progress Note Inpatient Progress Note Shlomo Damon MRN: N/A Date of : N/A Date of Service: 03/27/2020 History of Present Illness The patient is a 64-year-old woman with a history of schizophrenia presents after stopping her risperidone. She reports she became paranoid, worried and fear that people are out to get here. Her family brought her in as she became more disabled by her paranoia and reported difficulties feeling that people are watching her. She is able to express these more effectively, but generally attempts to hide the severity. Interval History Patient was unable to be met with today as she was sedated from a previous restraint the prior evening. She has been paranoid and difficult to redirect. Review Of Systems Unable to induce sedation. Psychotherapy None on this visit. Vital Signs Reviewed. Mental Status Examination Sedated. Diagnoses Schizophrenia. Assessment and Plan Schizophrenia: Continue clozapine 12.5 mg nightly. Disposition Patient will need to be continued on involuntary admission likely past Friday. She is too sick in order to make a safe discharge plan. Time Spent 15 minutes. Friday Vital Signs Vital Signs Date Time Temp Pulse Resp B/P (MAP) Pulse Ox O2 Delivery O2 Flow Rate FiO2 03/27/20 08:17 80 03/27/20 08:16 122/60 03/27/20 06:23 98.0 16 03/26/20 07:39 Room Air 03/26/20 06:32 100 Laboratory Data 24H Labs Laboratory Tests 2 03/26/20 11:48: Bedside Glucose (Misc Panel) 100 03/26/20 16:40: Bedside Glucose (Misc Panel) 136H 03/26/20 21:03: Bedside Glucose (Misc Panel) 152H 03/27/20 06:11: Bedside Glucose (Misc Panel) 125H Current Medications Current Medications Medications (Trade) Dose Ordered Sig/Ayesha Route PRN Reason Start Time Stop Time Status Last Admin Dose Admin Acetaminophen (Tylenol Tab) 650 mg Q6HP PRN PO HEADACHE or DISCOMFORT 03/13/20 22:45 Al Hydrox/Mg Hydrox/Simethicone (Mylanta) 30 ml Q4HP PRN PO HEARTBURN/INDIGESTION 03/13/20 22:45 Aripiprazole (AbiLIFY) 5 mg QHS PO 03/17/20 21:00 5/6/20 09:21 DC 03/21/20 22:31 Aripiprazole (AbiLIFY) 5 mg QHS PO 03/22/20 21:00 03/23/20 09:20 DC 03/22/20 20:41 Clozapine (Clozaril) 12.5 mg QHS PO 03/22/20 21:00 03/22/20 15:56 DC Clozapine (Clozaril) 12.5 mg QHS PO 03/23/20 21:00 03/26/20 21:07 Dextrose (Dextrose 50%) 25 ml ASDIRECTED PRN IV SEE LABEL COMMENTS 03/14/20 09:15 Diphenhydramine HCl (Benadryl) 50 mg STAT STAT PO 03/23/20 06:36 03/23/20 06:38 DC 03/23/20 06:42 Diphenhydramine HCl (Benadryl) 50 mg STAT STAT PO 03/23/20 19:18 03/23/20 19:20 DC 03/23/20 19:25 Glucagon (Glucagon) 1 mg ASDIRECTED PRN SC SEE LABEL COMMENTS 03/14/20 09:15 Glucose (Glucose) 16 GM ASDIRECTED PRN PO SEE LABEL COMMENTS 03/14/20 09:15 Glyburide (Diabeta, Micronase) 5 mg DAILY@1730 PO 03/14/20 17:30 03/26/20 17:16 Glyburide (Diabeta, Micronase) 10 mg DAILY@0730 PO 03/14/20 07:30 03/27/20 06:40 Haloperidol (Haldol) 0.5 mg Q4HP PRN PO AGITATION 03/17/20 09:30 03/23/20 06:25 Haloperidol (Haldol) 2 mg STAT STAT PO 03/18/20 20:00 03/18/20 20:01 DC Haloperidol (Haldol) 3 mg STAT STAT IM 03/18/20 20:12 03/18/20 20:14 DC 03/18/20 20:19 Haloperidol (Haldol) 5 mg STAT STAT IM 03/18/20 20:09 03/18/20 20:10 Cancel Haloperidol (Haldol) 10 mg STAT STAT PO 03/23/20 06:36 03/23/20 06:38 DC 03/23/20 06:42 Haloperidol (Haldol) 10 mg STAT STAT PO 03/23/20 19:18 03/23/20 19:20 DC 03/23/20 19:25 Home Med (Med Rec Complete!) ASDIRECTED XX 03/13/20 23:30 03/13/20 23:43 DC Insulin Human Lispro (HumaLOG INSULIN) SEE PROTOCOL TABLE AC WI 03/14/20 12:00 03/24/20 12:21 Insulin Human Lispro (HumaLOG INSULIN) SEE PROTOCOL TABLE QHS WI 03/14/20 21:00 Lisinopril (Prinivil) 5 mg DAILY PO 03/14/20 09:00 03/27/20 08:16 Lorazepam (Ativan) 1 mg STAT STAT IM 03/18/20 20:00 03/18/20 20:01 Cancel Lorazepam (Ativan) 1 mg STAT STAT IM 03/18/20 20:09 03/18/20 20:11 DC 03/18/20 20:19 Lorazepam (Ativan) 1 mg STAT STAT PO 03/18/20 18:41 03/18/20 18:44 DC Lorazepam (Ativan) 1 mg STAT STAT PO 03/23/20 06:36 03/23/20 06:38 DC 03/23/20 06:42 Lorazepam (Ativan) 2 mg STAT STAT PO 03/23/20 19:18 03/23/20 19:20 DC 03/23/20 19:25 Magnesium Hydroxide (Milk Of Magnesia) 30 ml DAILYPRN PRN PO CONSTIPATION 03/13/20 22:45 Metformin HCl (Glucophage) 1,000 mg BID@0800,1800 PO 03/14/20 08:00 03/27/20 08:16 Metoprolol Succinate (TopROL XL) 25 mg BID PO 03/14/20 09:00 03/27/20 08:17 Olanzapine (ZyPREXA ZYDIS) 5 mg STAT STAT PO 03/18/20 18:49 03/18/20 18:50 DC Risperidone (RisperDAL) 0.25 mg BID PO 03/13/20 21:00 03/15/20 16:32 DC 03/15/20 08:57 Risperidone (RisperDAL) 0.5 mg BID PO 03/15/20 21:00 03/17/20 09:51 DC 03/17/20 09:00 Sertraline HCl (Zoloft) 12.5 mg DAILY PO 03/14/20 09:00 03/27/20 08:16 Trazodone HCl (Desyrel) 50 mg QHSP PRN PO INSOMNIA 03/13/20 22:45 03/17/20 04:20 Allergies Coded Allergies: amoxicillin (Verified Allergy, Unknown, 03/13/20) aspirin (Verified Allergy, Unknown, 03/13/20) YURI MADRIGAL DO March 27, 2020 09:50
[2020-03-27] MEDS: haloperidoL 0.5 MG TAB PO PRN ×2 (14:54→18:59)
[2020-03-27 16:34] VITALS: BP 130/80
[2020-03-27] MEDS ORDERED: OLANZapine ORAL DISINTEGRATING TAB 5MG PO STA (19:31)
[2020-03-27] MEDS ORDERED: diphenhydrAMINE 50MG CAP PO STA (19:31)
[2020-03-27] MEDS ORDERED: cloZAPine 25 MG TAB (S0136) PO SCH (21:00)
[2020-03-27] MEDS: traZODone 50 MG TAB PO PRN (23:54)
[2020-03-28] MEDS ORDERED: diphenhydrAMINE 50MG CAP PO STA (00:32)
[2020-03-28] MEDS ORDERED: LORazepam 1 MG TAB PO STA (00:32)
[2020-03-28] MEDS ORDERED: OLANZapine ORAL DISINTEGRATING TAB 5MG PO STA (00:32)
[2020-03-28 06:20] VITALS: BP 104/63
[2020-03-28] MEDS: glyBURIDE 2.5 MG TAB PO SCH ×2 (06:34→17:02)
[2020-03-28] MEDS: HumaLOG INSULIN (NovoLOG) PER UNIT SC SCH ×4 (06:34→20:48)
--- NOTE | 2020-03-28 09:22 | MHIPNPDOC ---
[facility] Progress Note Progress Note Inpatient Progress Note Shlomo Damon MRN: N/A Date of : N/A Date of Service: 03/28/2020 History of Present Illness The patient is a 64-year-old woman with a history of schizophrenia presents after stopping her risperidone. She reports she became paranoid, worried and fear that people are out to get here. Her family brought her in as she became more disabled by her paranoia and reported difficulties feeling that people are watching her. She is able to express these more effectively, but generally attempts to hide the severity. Interval History Patient is met with today. She is still quite psychotic and fixates on going home. She talks about people speaking to her and telling her that they are going to "kill her." She has had multiple instances needing sedation and restraints. Review Of Systems Reports no physical complaints at this time. Psychotherapy None on this visit. Vital Signs Reviewed. Mental Status Examination General: Well dressed with good hygiene Speech: Sparse. Thought processes: Linear and logical MSK: Smooth and coordinated gait, no signs of tremors or involuntary orofacial movements Thought content: Bizarre ideation. Abstract reasoning, and computation: Impaired. Description of associations: Impaired. Description of abnormal or psychotic thoughts: Right with paranoia. Judgment: Impaired. Insight: Impaired. Orientation: Alert and orientated 3 Cognition: Grossly normal Recent and remote memory: Intact Attention span and concentration: Impaired. Fund of knowledge: Adequate Mood: "okay" Affect: Flat with a lot of reactivity. Diagnoses Schizophrenia. Assessment and Plan Schizophrenia: Discontinue clozapine and try Haldol 10 mg nightly as more effective. Disposition Patient will need to be continued on involuntary admission likely past Friday. She is too sick in order to make a safe discharge plan. Time Spent 15 minutes. Friday Vital Signs Vital Signs Date Time Temp Pulse Resp B/P (MAP) Pulse Ox O2 Delivery O2 Flow Rate FiO2 03/28/20 06:20 96.2 68 12 104/63 (77) Room Air 03/26/20 06:32 100 Laboratory Data 24H Labs Laboratory Tests 2 03/27/20 11:52: Bedside Glucose (Misc Panel) 61L 03/27/20 17:40: Bedside Glucose (Misc Panel) 170H 03/27/20 19:45: Bedside Glucose (Misc Panel) 194H 03/28/20 06:32: Bedside Glucose (Misc Panel) 133H Current Medications Current Medications Medications (Trade) Dose Ordered Sig/Ayesha Route PRN Reason Start Time Stop Time Status Last Admin Dose Admin Acetaminophen (Tylenol Tab) 650 mg Q6HP PRN PO HEADACHE or DISCOMFORT 03/13/20 22:45 Al Hydrox/Mg Hydrox/Simethicone (Mylanta) 30 ml Q4HP PRN PO HEARTBURN/INDIGESTION 03/13/20 22:45 Aripiprazole (AbiLIFY) 5 mg QHS PO 03/17/20 21:00 03/22/20 09:21 DC 03/21/20 22:31 Aripiprazole (AbiLIFY) 5 mg QHS PO 03/22/20 21:00 03/23/20 09:20 DC 03/22/20 20:41 Clozapine (Clozaril) 12.5 mg QHS PO 03/22/20 21:00 03/22/20 15:56 DC Clozapine (Clozaril) 12.5 mg QHS PO 03/23/20 21:00 03/27/20 10:40 DC 03/26/20 21:07 Clozapine (Clozaril) 25 mg QHS PO 03/27/20 21:00 03/27/20 20:06 Dextrose (Dextrose 50%) 25 ml ASDIRECTED PRN IV SEE LABEL COMMENTS 03/14/20 09:15 Diphenhydramine HCl (Benadryl) 50 mg STAT STAT PO 03/27/20 19:31 03/27/20 19:32 DC 03/27/20 19:38 Diphenhydramine HCl (Benadryl) 50 mg STAT STAT PO 03/28/20 00:32 03/28/20 00:34 DC 03/28/20 00:37 Diphenhydramine HCl (Benadryl) 50 mg STAT STAT PO 03/23/20 06:36 03/23/20 06:38 DC 03/23/20 06:42 Diphenhydramine HCl (Benadryl) 50 mg STAT STAT PO 03/23/20 19:18 03/23/20 19:20 DC 03/23/20 19:25 Glucagon (Glucagon) 1 mg ASDIRECTED PRN SC SEE LABEL COMMENTS 03/14/20 09:15 Glucose (Glucose) 16 GM ASDIRECTED PRN PO SEE LABEL COMMENTS 03/14/20 09:15 Glyburide (Diabeta, Micronase) 5 mg DAILY@1730 PO 03/14/20 17:30 03/27/20 17:44 Glyburide (Diabeta, Micronase) 10 mg DAILY@0730 PO 03/14/20 07:30 03/28/20 06:34 Haloperidol (Haldol) 0.5 mg Q4HP PRN PO AGITATION 03/17/20 09:30 03/27/20 18:59 Haloperidol (Haldol) 2 mg STAT STAT PO 03/18/20 20:00 03/18/20 20:01 DC Haloperidol (Haldol) 3 mg STAT STAT IM 03/18/20 20:12 03/18/20 20:14 DC 03/18/20 20:19 Haloperidol (Haldol) 5 mg STAT STAT IM 03/18/20 20:09 03/18/20 20:10 Cancel Haloperidol (Haldol) 10 mg STAT STAT PO 03/23/20 06:36 03/23/20 06:38 DC 03/23/20 06:42 Haloperidol (Haldol) 10 mg STAT STAT PO 03/23/20 19:18 03/23/20 19:20 DC 03/23/20 19:25 Home Med (Med Rec Complete!) ASDIRECTED XX 03/13/20 23:30 03/13/20 23:43 DC Insulin Human Lispro (HumaLOG INSULIN) SEE PROTOCOL TABLE AC VA 03/14/20 12:00 03/24/20 12:21 Insulin Human Lispro (HumaLOG INSULIN) SEE PROTOCOL TABLE QHS VA 03/14/20 21:00 Lisinopril (Prinivil) 5 mg DAILY PO 03/14/20 09:00 03/27/20 08:16 Lorazepam (Ativan) 1 mg STAT STAT IM 03/18/20 20:00 03/18/20 20:01 Cancel Lorazepam (Ativan) 1 mg STAT STAT IM 03/18/20 20:09 03/18/20 20:11 DC 03/18/20 20:19 Lorazepam (Ativan) 1 mg STAT STAT PO 03/28/20 00:32 03/28/20 00:34 DC 03/28/20 00:37 Lorazepam (Ativan) 1 mg STAT STAT PO 03/18/20 18:41 03/18/20 18:44 DC Lorazepam (Ativan) 1 mg STAT STAT PO 03/23/20 06:36 03/23/20 06:38 DC 03/23/20 06:42 Lorazepam (Ativan) 2 mg STAT STAT PO 03/23/20 19:18 03/23/20 19:20 DC 03/23/20 19:25 Magnesium Hydroxide (Milk Of Magnesia) 30 ml DAILYPRN PRN PO CONSTIPATION 03/13/20 22:45 Metformin HCl (Glucophage) 1,000 mg BID@0800,1800 PO 03/14/20 08:00 03/27/20 17:44 Metoprolol Succinate (TopROL XL) 25 mg BID PO 03/14/20 09:00 03/27/20 20:06 Olanzapine (ZyPREXA ZYDIS) 5 mg STAT STAT PO 03/18/20 18:49 03/18/20 18:50 DC Olanzapine (ZyPREXA ZYDIS) 10 mg STAT STAT PO 03/27/20 19:31 03/27/20 19:32 DC 03/27/20 19:39 Olanzapine (ZyPREXA ZYDIS) 10 mg STAT STAT PO 03/28/20 00:32 03/28/20 00:34 DC 03/28/20 00:37 Risperidone (RisperDAL) 0.25 mg BID PO 03/13/20 21:00 03/15/20 16:32 DC 03/15/20 08:57 Risperidone (RisperDAL) 0.5 mg BID PO 03/15/20 21:00 03/17/20 09:51 DC 03/17/20 09:00 Sertraline HCl (Zoloft) 12.5 mg DAILY PO 03/14/20 09:00 03/27/20 08:16 Trazodone HCl (Desyrel) 50 mg QHSP PRN PO INSOMNIA 03/13/20 22:45 03/27/20 23:54 Allergies Coded Allergies: amoxicillin (Verified Allergy, Unknown, 03/13/20) aspirin (Verified Allergy, Unknown, 03/13/20) YURI MADRIGAL DO March 28, 2020 09:22
--- NOTE | 2020-03-28 11:48 | MHPR ---
General Date: March 28, 2020 Time: 11:47 Post-Restraint Evaluation THE OUTCOME OF THE RESTRAINT: sedated EFFECTIVENESS OF THE RESTRAINT: Mechanical and/or chemical: positive ANY EVIDENCE THAT THE PATIENT WAS AFFECTED EMOTIONALLY: no ANY NEED FOR COUNSELING/ASSISTANCE: no CHANGES IN TREATMENT PLAN: change PRN dose RECOMMENDATIONS FOR FUTURE INCIDENTS: higher dose of PRN prior YURI MADRIGAL DO March 28, 2020 11:48
[2020-03-28] MEDS: lisinopriL 5 MG TAB PO SCH (12:01)
[2020-03-28] MEDS: METOPROLOL SUCC *XL* 25MG TAB (TopROL *XL*) PO SCH ×2 (12:02→20:36)
[2020-03-28] MEDS: metFORMIN (GLUCOPHAGE) 1000 MG TABLET PO SCH ×2 (12:02→17:41)
[2020-03-28 17:03] VITALS: BP 144/71
[2020-03-28] MEDS: traZODone 50 MG TAB PO PRN (20:36)
[2020-03-29 06:07] VITALS: BP 128/72
[2020-03-29] MEDS: glyBURIDE 2.5 MG TAB PO SCH ×2 (06:35→17:25)
[2020-03-29] MEDS: HumaLOG INSULIN (NovoLOG) PER UNIT SC SCH ×4 (07:08→21:00)
[2020-03-29] MEDS: metFORMIN (GLUCOPHAGE) 1000 MG TABLET PO SCH ×2 (08:58→17:24)
[2020-03-29] MEDS: METOPROLOL SUCC *XL* 25MG TAB (TopROL *XL*) PO SCH ×2 (09:00→21:22)
[2020-03-29] MEDS: lisinopriL 5 MG TAB PO SCH (09:00)
[2020-03-29] MEDS ORDERED: VENLAFAXINE **XR** 37.5 MG CAPSULE PO ONE (09:45)
--- NOTE | 2020-03-29 09:58 | MHIPNPDOC ---
[facility] Progress Note Progress Note Inpatient Progress Note Shlomo Damon MRN: N/A Date of : N/A Date of Service: 03/29/2020 History of Present Illness The patient is a 64-year-old woman with a history of schizophrenia presents after stopping her risperidone. She reports she became paranoid, worried and fear that people are out to get here. Her family brought her in as she became more disabled by her paranoia and reported difficulties feeling that people are watching her. She is able to express these more effectively, but generally attempts to hide the severity. Interval History The patient is met with today. She is doing much better and is more reasonable today during discussion. She reports she was paranoid and had felt that her episode the previous evening was related to her fears that people wanting to kill her. She did have an episode the previous evening of lashing out the door. Review Of Systems Denies any physical side effects from her medication such as GI, nausea, cardiovascular, respiratory or any other on interview. Psychotherapy None on this visit. Vital Signs Reviewed. Mental Status Examination General: Well dressed with good hygiene Speech: Sparse. Thought processes: Linear and logical MSK: Smooth and coordinated gait, no signs of tremors or involuntary orofacial movements Thought content: Bizarre ideation. Abstract reasoning, and computation: Impaired. Description of associations: Impaired. Description of abnormal or psychotic thoughts: Right with paranoia. Judgment: Impaired. Insight: Impaired. Orientation: Alert and orientated 3 Cognition: Grossly normal Recent and remote memory: Intact Attention span and concentration: Impaired. Fund of knowledge: Adequate Mood: "okay" Affect: Flat with little reactivity. Diagnoses Schizophrenia. Assessment and Plan Schizophrenia: Continue Haldol 10 mg nightly as well as augmentation with venlafaxine 37.5 mg daily as there is a potential that the patient could have PTSD, unclear of trauma history but given low potential problem is worthwhile to try. Disposition We'll continue to observe if patient is able to remain stable for well over 24 h ours and be off a sitter. She could be potentially discharged to the care of her sister late this week. Time Spent 15 minutes. Friday Vital Signs Vital Signs Date Time Temp Pulse Resp B/P (MAP) Pulse Ox O2 Delivery O2 Flow Rate FiO2 03/29/20 09:00 72 03/29/20 09:00 130/68 03/29/20 06:07 96.9 18 03/28/20 06:20 Room Air 03/26/20 06:32 100 Laboratory Data 24H Labs Laboratory Tests 2 03/28/20 12:05: Bedside Glucose (Misc Panel) 124H 03/28/20 16:57: Bedside Glucose (Misc Panel) 167H 03/28/20 20:45: Bedside Glucose (Misc Panel) 142H 03/29/20 06:45: Bedside Glucose (Misc Panel) 130H Current Medications Current Medications Medications (Trade) Dose Ordered Sig/Ayesha Route PRN Reason Start Time Stop Time Status Last Admin Dose Admin Acetaminophen (Tylenol Tab) 650 mg Q6HP PRN PO HEADACHE or DISCOMFORT 03/13/20 22:45 Al Hydrox/Mg Hydrox/Simethicone (Mylanta) 30 ml Q4HP PRN PO HEARTBURN/INDIGESTION 03/13/20 22:45 Aripiprazole (AbiLIFY) 5 mg QHS PO 03/17/20 21:00 03/22/20 09:21 DC 03/21/20 22:31 Aripiprazole (AbiLIFY) 5 mg QHS PO 03/22/20 21:00 03/23/20 09:20 DC 03/22/20 20:41 Clozapine (Clozaril) 12.5 mg QHS PO 03/22/20 21:00 03/22/20 15:56 DC Clozapine (Clozaril) 12.5 mg QHS PO 03/23/20 21:00 03/27/20 10:40 DC 03/26/20 21:07 Clozapine (Clozaril) 25 mg QHS PO 03/27/20 21:00 03/28/20 11:52 DC 03/27/20 20:06 Dextrose (Dextrose 50%) 25 ml ASDIRECTED PRN IV SEE LABEL COMMENTS 03/14/20 09:15 Diphenhydramine HCl (Benadryl) 50 mg STAT STAT PO 03/27/20 19:31 03/27/20 19:32 DC 03/27/20 19:38 Diphenhydramine HCl (Benadryl) 50 mg STAT STAT PO 03/28/20 00:32 03/28/20 00:34 DC 03/28/20 00:37 Diphenhydramine HCl (Benadryl) 50 mg STAT STAT PO 03/23/20 06:36 03/23/20 06:38 DC 03/23/20 06:42 Diphenhydramine HCl (Benadryl) 50 mg STAT STAT PO 03/23/20 19:18 03/23/20 19:20 DC 03/23/20 19:25 Glucagon (Glucagon) 1 mg ASDIRECTED PRN SC SEE LABEL COMMENTS 03/14/20 09:15 Glucose (Glucose) 16 GM ASDIRECTED PRN PO SEE LABEL COMMENTS 03/14/20 09:15 Glyburide (Diabeta, Micronase) 5 mg DAILY@1730 PO 03/14/20 17:30 03/28/20 17:02 Glyburide (Diabeta, Micronase) 10 mg DAILY@0730 PO 03/14/20 07:30 03/29/20 06:35 Haloperidol (Haldol) 0.5 mg Q4HP PRN PO AGITATION 03/17/20 09:30 03/28/20 11:48 DC 03/27/20 18:59 Haloperidol (Haldol) 2 mg STAT STAT PO 03/18/20 20:00 03/18/20 20:01 DC Haloperidol (Haldol) 3 mg STAT STAT IM 03/18/20 20:12 03/18/20 20:14 DC 03/18/20 20:19 Haloperidol (Haldol) 5 mg Q4HP PRN PO AGITATION 03/28/20 12:00 Haloperidol (Haldol) 5 mg STAT STAT IM 03/18/20 20:09 03/18/20 20:10 Cancel Haloperidol (Haldol) 10 mg DAILY@1800 PO 03/28/20 18:00 03/28/20 17:41 Haloperidol (Haldol) 10 mg STAT STAT PO 03/23/20 06:36 03/23/20 06:38 DC 03/23/20 06:42 Haloperidol (Haldol) 10 mg STAT STAT PO 03/23/20 19:18 03/23/20 19:20 DC 03/23/20 19:25 Home Med (Med Rec Complete!) ASDIRECTED XX 03/13/20 23:30 03/13/20 23:43 DC Insulin Human Lispro (HumaLOG INSULIN) SEE PROTOCOL TABLE AC SC 03/14/20 12:00 5/8/20 12:21 Insulin Human Lispro (HumaLOG INSULIN) SEE PROTOCOL TABLE QHS SC 03/14/20 21:00 Lisinopril (Prinivil) 5 mg DAILY PO 03/14/20 09:00 03/29/20 09:00 Lorazepam (Ativan) 1 mg STAT STAT IM 03/18/20 20:00 03/18/20 20:01 Cancel Lorazepam (Ativan) 1 mg STAT STAT IM 03/18/20 20:09 03/18/20 20:11 DC 03/18/20 20:19 Lorazepam (Ativan) 1 mg STAT STAT PO 03/28/20 00:32 03/28/20 00:34 DC 03/28/20 00:37 Lorazepam (Ativan) 1 mg STAT STAT PO 03/18/20 18:41 03/18/20 18:44 DC Lorazepam (Ativan) 1 mg STAT STAT PO 03/23/20 06:36 03/23/20 06:38 DC 03/23/20 06:42 Lorazepam (Ativan) 2 mg STAT STAT PO 03/23/20 19:18 03/23/20 19:20 DC 03/23/20 19:25 Magnesium Hydroxide (Milk Of Magnesia) 30 ml DAILYPRN PRN PO CONSTIPATION 03/13/20 22:45 Metformin HCl (Glucophage) 1,000 mg BID@0800,1800 PO 03/14/20 08:00 03/29/20 08:58 Metoprolol Succinate (TopROL XL) 25 mg BID PO 03/14/20 09:00 03/29/20 09:00 Olanzapine (ZyPREXA ZYDIS) 5 mg STAT STAT PO 03/18/20 18:49 03/18/20 18:50 DC Olanzapine (ZyPREXA ZYDIS) 10 mg STAT STAT PO 03/27/20 19:31 03/27/20 19:32 DC 03/27/20 19:39 Olanzapine (ZyPREXA ZYDIS) 10 mg STAT STAT PO 03/28/20 00:32 03/28/20 00:34 DC 03/28/20 00:37 Risperidone (RisperDAL) 0.25 mg BID PO 03/13/20 21:00 03/15/20 16:32 DC 03/15/20 08:57 Risperidone (RisperDAL) 0.5 mg BID PO 03/15/20 21:00 03/17/20 09:51 DC 03/17/20 09:00 Sertraline HCl (Zoloft) 12.5 mg DAILY PO 03/14/20 09:00 03/28/20 11:56 DC 03/27/20 08:16 Trazodone HCl (Desyrel) 50 mg QHSP PRN PO INSOMNIA 03/13/20 22:45 03/28/20 20:36 Venlafaxine HCl (Effexor Xr) 37.5 mg DAILY PO 03/30/20 09:00 Allergies Coded Allergies: amoxicillin (Verified Allergy, Unknown, 03/13/20) aspirin (Verified Allergy, Unknown, 03/13/20) YURI MADRIGAL DO March 29, 2020 09:58
[2020-03-29 16:03] VITALS: BP 106/58
[2020-03-29] MEDS: traZODone 50 MG TAB PO PRN (21:21)
[2020-03-30 06:35] VITALS: BP 132/63
[2020-03-30] MEDS: HumaLOG INSULIN (NovoLOG) PER UNIT SC SCH ×4 (06:47→20:15)
[2020-03-30] MEDS: glyBURIDE 2.5 MG TAB PO SCH ×2 (06:48→17:12)
[2020-03-30] MEDS: metFORMIN (GLUCOPHAGE) 1000 MG TABLET PO SCH ×2 (07:54→17:12)
[2020-03-30] MEDS: VENLAFAXINE **XR** 37.5 MG CAPSULE PO SCH (09:09)
[2020-03-30] MEDS: METOPROLOL SUCC *XL* 25MG TAB (TopROL *XL*) PO SCH ×2 (09:09→20:13)
[2020-03-30] MEDS: lisinopriL 5 MG TAB PO SCH (09:09)
--- NOTE | 2020-03-30 09:53 | MHIPNPDOC ---
[facility] Progress Note Progress Note Inpatient Progress Note Shlomo Damon MRN: N/A Date of : N/A Date of Service: 03/30/2020 History of Present Illness The patient is a 64-year-old woman with a history of schizophrenia presents after stopping her risperidone. She reports she became paranoid, worried and fear that people are out to get here. Her family brought her in as she became more disabled by her paranoia and reported difficulties feeling that people are watching her. She is able to express these more effectively, but generally attempts to hide the severity. Interval History The patient is attempted to be met with today. However she reports that she is doing much better. She is initially somewhat more insightful and thoughtful. She had a good night the previous evening and is okay being tried off a sitter. She has been tolerating the medications well without any reported side effects. She does appear to be making some modest progress in her psychosis. Review Of Systems General: Denies fever or appetite changes Cardiovascular: Denies Chest pain or palpations GI: Denies Nausea, vomiting, or bowel changes Respiratory: Denies shortness of breath or cough Neuro: Denies dizziness, tremors Derm: Denies any rashes or pruritus : Denies any dysuria or urinary problems MSK: Denies any muscle tightness or stiffness HEENT: Denies any vision changes or headaches Psychotherapy None on this visit. Vital Signs Reviewed. Mental Status Examination General: Well dressed with good hygiene Speech: Sparse. Thought processes: Linear and logical MSK: Smooth and coordinated gait, no signs of tremors or involuntary orofacial movements Thought content: Bizarre ideation. Abstract reasoning, and computation: Impaired. Description of associations: Impaired. Description of abnormal or psychotic thoughts: Denies any suicidal or homicidal ideation, denies any auditory or visual hallucinations. Judgment: Improved. Insight: Mildly improved. Orientation: Alert and orientated 3 Cognition: Grossly normal Recent and remote memory: Intact Attention span and concentration: Impaired. Fund of knowledge: Adequate Mood: "okay" Affect: Less flat Diagnoses Schizophrenia. Assessment and Plan Schizophrenia: Continue Haldol and venlafaxine. Disposition Will monitor patient overnight. If she can proceed off a sitter without any behavioral problems overnight, then we will consider discharging her tomorrow. Time Spent 15 minutes. Vital Signs Vital Signs Date Time Temp Pulse Resp B/P (MAP) Pulse Ox O2 Delivery O2 Flow Rate FiO2 03/30/20 09:09 73 03/30/20 09:09 134/63 03/30/20 06:35 97.5 12 03/28/20 06:20 Room Air 03/26/20 06:32 100 Laboratory Data 24H Labs Laboratory Tests 2 03/29/20 11:57: Bedside Glucose (Misc Panel) 96 03/29/20 16:59: Bedside Glucose (Misc Panel) 91 Current Medications Current Medications Medications (Trade) Dose Ordered Sig/Ayesha Route PRN Reason Start Time Stop Time Status Last Admin Dose Admin Acetaminophen (Tylenol Tab) 650 mg Q6HP PRN PO HEADACHE or DISCOMFORT 03/13/20 22:45 Al Hydrox/Mg Hydrox/Simethicone (Mylanta) 30 ml Q4HP PRN PO HEARTBURN/INDIGESTION 03/13/20 22:45 Aripiprazole (AbiLIFY) 5 mg QHS PO 03/17/20 21:00 03/22/20 09:21 DC 03/21/20 22:31 Aripiprazole (AbiLIFY) 5 mg QHS PO 03/22/20 21:00 03/23/20 09:20 DC 03/22/20 20:41 Clozapine (Clozaril) 12.5 mg QHS PO 03/22/20 21:00 03/22/20 15:56 DC Clozapine (Clozaril) 12.5 mg QHS PO 03/23/20 21:00 03/27/20 10:40 DC 03/26/20 21:07 Clozapine (Clozaril) 25 mg QHS PO 03/27/20 21:00 03/28/20 11:52 DC 03/27/20 20:06 Dextrose (Dextrose 50%) 25 ml ASDIRECTED PRN IV SEE LABEL COMMENTS 03/14/20 09:15 Diphenhydramine HCl (Benadryl) 50 mg STAT STAT PO 03/27/20 19:31 03/27/20 19:32 DC 03/27/20 19:38 Diphenhydramine HCl (Benadryl) 50 mg STAT STAT PO 03/28/20 00:32 03/28/20 00:34 DC 03/28/20 00:37 Diphenhydramine HCl (Benadryl) 50 mg STAT STAT PO 03/23/20 06:36 03/23/20 06:38 DC 03/23/20 06:42 Diphenhydramine HCl (Benadryl) 50 mg STAT STAT PO 03/23/20 19:18 03/23/20 19:20 DC 03/23/20 19:25 Glucagon (Glucagon) 1 mg ASDIRECTED PRN SC SEE LABEL COMMENTS 03/14/20 09:15 Glucose (Glucose) 16 GM ASDIRECTED PRN PO SEE LABEL COMMENTS 03/14/20 09:15 Glyburide (Diabeta, Micronase) 5 mg DAILY@1730 PO 03/14/20 17:30 03/29/20 17:25 Glyburide (Diabeta, Micronase) 10 mg DAILY@0730 PO 03/14/20 07:30 03/30/20 06:48 Haloperidol (Haldol) 0.5 mg Q4HP PRN PO AGITATION 03/17/20 09:30 03/28/20 11:48 DC 03/27/20 18:59 Haloperidol (Haldol) 2 mg STAT STAT PO 03/18/20 20:00 03/18/20 20:01 DC Haloperidol (Haldol) 3 mg STAT STAT IM 03/18/20 20:12 03/18/20 20:14 DC 03/18/20 20:19 Haloperidol (Haldol) 5 mg Q4HP PRN PO AGITATION 03/28/20 12:00 Haloperidol (Haldol) 5 mg STAT STAT IM 03/18/20 20:09 03/18/20 20:10 Cancel Haloperidol (Haldol) 10 mg DAILY@1800 PO 03/28/20 18:00 03/29/20 17:24 Haloperidol (Haldol) 10 mg STAT STAT PO 03/23/20 06:36 03/23/20 06:38 DC 03/23/20 06:42 Haloperidol (Haldol) 10 mg STAT STAT PO 03/23/20 19:18 03/23/20 19:20 DC 03/23/20 19:25 Home Med (Med Rec Complete!) ASDIRECTED XX 03/13/20 23:30 03/13/20 23:43 DC Insulin Human Lispro (HumaLOG INSULIN) SEE PROTOCOL TABLE AC SC 03/14/20 12:00 03/24/20 12:21 Insulin Human Lispro (HumaLOG INSULIN) SEE PROTOCOL TABLE QHS [place] 03/14/20 21:00 Lisinopril (Prinivil) 5 mg DAILY PO 03/14/20 09:00 03/30/20 09:09 Lorazepam (Ativan) 1 mg STAT STAT IM 03/18/20 20:00 03/18/20 20:01 Cancel Lorazepam (Ativan) 1 mg STAT STAT IM 03/18/20 20:09 03/18/20 20:11 DC 03/18/20 20:19 Lorazepam (Ativan) 1 mg STAT STAT PO 03/28/20 00:32 03/28/20 00:34 DC 03/28/20 00:37 Lorazepam (Ativan) 1 mg STAT STAT PO 03/18/20 18:41 03/18/20 18:44 DC Lorazepam (Ativan) 1 mg STAT STAT PO 03/23/20 06:36 03/23/20 06:38 DC 03/23/20 06:42 Lorazepam (Ativan) 2 mg STAT STAT PO 03/23/20 19:18 03/23/20 19:20 DC 03/23/20 19:25 Magnesium Hydroxide (Milk Of Magnesia) 30 ml DAILYPRN PRN PO CONSTIPATION 03/13/20 22:45 Metformin HCl (Glucophage) 1,000 mg BID@0800,1800 PO 03/14/20 08:00 03/30/20 07:54 Metoprolol Succinate (TopROL XL) 25 mg BID PO 03/14/20 09:00 03/30/20 09:09 Olanzapine (ZyPREXA ZYDIS) 5 mg STAT STAT PO 03/18/20 18:49 03/18/20 18:50 DC Olanzapine (ZyPREXA ZYDIS) 10 mg STAT STAT PO 03/27/20 19:31 03/27/20 19:32 DC 03/27/20 19:39 Olanzapine (ZyPREXA ZYDIS) 10 mg STAT STAT PO 03/28/20 00:32 03/28/20 00:34 DC 03/28/20 00:37 Risperidone (RisperDAL) 0.25 mg BID PO 03/13/20 21:00 03/15/20 16:32 DC 03/15/20 08:57 Risperidone (RisperDAL) 0.5 mg BID PO 03/15/20 21:00 03/17/20 09:51 DC 03/17/20 09:00 Sertraline HCl (Zoloft) 12.5 mg DAILY PO 03/14/20 09:00 03/28/20 11:56 DC 03/27/20 08:16 Trazodone HCl (Desyrel) 50 mg QHSP PRN PO INSOMNIA 03/13/20 22:45 03/29/20 21:21 Venlafaxine HCl (Effexor Xr) 37.5 mg DAILY PO 03/30/20 09:00 03/30/20 09:09 Allergies Coded Allergies: amoxicillin (Verified Allergy, Unknown, 03/13/20) aspirin (Verified Allergy, Unknown, 03/13/20) YURI MADRIGAL DO March 30, 2020 09:53
[2020-03-30 16:22] VITALS: BP 128/74
[2020-03-30] MEDS: traZODone 50 MG TAB PO PRN (20:12)
[2020-03-31 06:00] VITALS: BP 119/64
[2020-03-31] MEDS: HumaLOG INSULIN (NovoLOG) PER UNIT SC SCH ×4 (07:30→20:45)
[2020-03-31] MEDS: glyBURIDE 2.5 MG TAB PO SCH ×2 (07:38→17:13)
[2020-03-31] MEDS: metFORMIN (GLUCOPHAGE) 1000 MG TABLET PO SCH ×2 (07:38→17:13)
[2020-03-31] MEDS: lisinopriL 5 MG TAB PO SCH (08:45)
[2020-03-31] MEDS: VENLAFAXINE **XR** 37.5 MG CAPSULE PO SCH (08:45)
[2020-03-31] MEDS: METOPROLOL SUCC *XL* 25MG TAB (TopROL *XL*) PO SCH ×2 (08:46→20:36)
--- NOTE | 2020-03-31 09:11 | MHIPNPDOC ---
[facility] Progress Note Progress Note Inpatient Progress Note Shlomo Damon MRN: N/A Date of : N/A Date of Service: 03/31/2020 History of Present Illness The patient is a 64-year-old woman with a history of schizophrenia presents after stopping her risperidone. She reports she became paranoid, worried and fear that people are out to get here. Her family brought her in as she became more disabled by her paranoia and reported difficulties feeling that people are watching her. She is able to express these more effectively, but generally attempts to hide the severity. Interval History Patient was unable to met with. She was quite agitated, running out the door multiple times today. She required sedation and was unable to be met with. Her paranoia appears to have gotten the better of her today and her discharge was canceled. Review Of Systems Unable to obtain due to sedation. Psychotherapy None on this visit. Vital Signs Reviewed. Mental Status Examination Patient sedated. Diagnoses Schizophrenia. Assessment and Plan Schizophrenia: Continue Haldol and venlafaxine. Disposition Discharge cancelled for today. We will observe over weekend. Will need further inpatient stay due to significant paranoid Time Spent 15 minutes. Friday Vital Signs Vital Signs Date Time Temp Pulse Resp B/P (MAP) Pulse Ox O2 Delivery O2 Flow Rate FiO2 03/31/20 08:46 62 03/31/20 08:45 122/66 03/31/20 06:00 97.4 16 100 03/28/20 06:20 Room Air Laboratory Data 24H Labs Laboratory Tests 2 03/30/20 11:51: Bedside Glucose (Misc Panel) 152H 03/30/20 16:37: Bedside Glucose (Misc Panel) 76L 03/30/20 20:10: Bedside Glucose (Misc Panel) 201H 03/31/20 05:49: Bedside Glucose (Misc Panel) 125H Current Medications Current Medications Medications (Trade) Dose Ordered Sig/Ayesha Route PRN Reason Start Time Stop Time Status Last Admin Dose Admin Acetaminophen (Tylenol Tab) 650 mg Q6HP PRN PO HEADACHE or DISCOMFORT 03/13/20 22:45 Al Hydrox/Mg Hydrox/Simethicone (Mylanta) 30 ml Q4HP PRN PO HEARTBURN/INDIGESTION 03/13/20 22:45 Aripiprazole (AbiLIFY) 5 mg QHS PO 03/17/20 21:00 03/22/20 09:21 DC 03/21/20 22:31 Aripiprazole (AbiLIFY) 5 mg QHS PO 03/22/20 21:00 03/23/20 09:20 DC 03/22/20 20:41 Clozapine (Clozaril) 12.5 mg QHS PO 03/22/20 21:00 03/22/20 15:56 DC Clozapine (Clozaril) 12.5 mg QHS PO 03/23/20 21:00 03/27/20 10:40 DC 03/26/20 21:07 Clozapine (Clozaril) 25 mg QHS PO 03/27/20 21:00 03/28/20 11:52 DC 03/27/20 20:06 Dextrose (Dextrose 50%) 25 ml ASDIRECTED PRN IV SEE LABEL COMMENTS 03/14/20 09:15 Diphenhydramine HCl (Benadryl) 50 mg STAT STAT PO 03/27/20 19:31 03/27/20 19:32 DC 03/27/20 19:38 Diphenhydramine HCl (Benadryl) 50 mg STAT STAT PO 03/28/20 00:32 03/28/20 00:34 DC 03/28/20 00:37 Diphenhydramine HCl (Benadryl) 50 mg STAT STAT PO 03/23/20 06:36 03/23/20 06:38 DC 03/23/20 06:42 Diphenhydramine HCl (Benadryl) 50 mg STAT STAT PO 03/23/20 19:18 03/23/20 19:20 DC 03/23/20 19:25 Glucagon (Glucagon) 1 mg ASDIRECTED PRN SC SEE LABEL COMMENTS 03/14/20 09:15 Glucose (Glucose) 16 GM ASDIRECTED PRN PO SEE LABEL COMMENTS 03/14/20 09:15 Glyburide (Diabeta, Micronase) 5 mg DAILY@1730 PO 03/14/20 17:30 03/30/20 17:12 Glyburide (Diabeta, Micronase) 10 mg DAILY@0730 PO 03/14/20 07:30 03/31/20 07:38 Haloperidol (Haldol) 0.5 mg Q4HP PRN PO AGITATION 03/17/20 09:30 03/28/20 11:48 DC 03/27/20 18:59 Haloperidol (Haldol) 2 mg STAT STAT PO 03/18/20 20:00 03/18/20 20:01 DC Haloperidol (Haldol) 3 mg STAT STAT IM 03/18/20 20:12 03/18/20 20:14 DC 03/18/20 20:19 Haloperidol (Haldol) 5 mg Q4HP PRN PO AGITATION 03/28/20 12:00 Haloperidol (Haldol) 5 mg STAT STAT IM 03/18/20 20:09 03/18/20 20:10 Cancel Haloperidol (Haldol) 10 mg DAILY@1800 PO 03/28/20 18:00 03/30/20 17:12 Haloperidol (Haldol) 10 mg STAT STAT PO 03/23/20 06:36 03/23/20 06:38 DC 03/23/20 06:42 Haloperidol (Haldol) 10 mg STAT STAT PO 03/23/20 19:18 03/23/20 19:20 DC 03/23/20 19:25 Home Med (Med Rec Complete!) ASDIRECTED XX 03/13/20 23:30 03/13/20 23:43 DC Insulin Human Lispro (HumaLOG INSULIN) SEE PROTOCOL TABLE AC VT 03/14/20 12:00 03/24/20 12:21 Insulin Human Lispro (HumaLOG INSULIN) SEE PROTOCOL TABLE QHS [place] 03/14/20 21:00 Lisinopril (Prinivil) 5 mg DAILY PO 03/14/20 09:00 03/31/20 08:45 Lorazepam (Ativan) 1 mg STAT STAT IM 03/18/20 20:00 03/18/20 20:01 Cancel Lorazepam (Ativan) 1 mg STAT STAT IM 03/18/20 20:09 03/18/20 20:11 DC 03/18/20 20:19 Lorazepam (Ativan) 1 mg STAT STAT PO 03/28/20 00:32 03/28/20 00:34 DC 03/28/20 00:37 Lorazepam (Ativan) 1 mg STAT STAT PO 03/18/20 18:41 03/18/20 18:44 DC Lorazepam (Ativan) 1 mg STAT STAT PO 03/23/20 06:36 03/23/20 06:38 DC 03/23/20 06:42 Lorazepam (Ativan) 2 mg STAT STAT PO 03/23/20 19:18 03/23/20 19:20 DC 03/23/20 19:25 Magnesium Hydroxide (Milk Of Magnesia) 30 ml DAILYPRN PRN PO CONSTIPATION 03/13/20 22:45 Metformin HCl (Glucophage) 1,000 mg BID@0800,1800 PO 03/14/20 08:00 03/31/20 07:38 Metoprolol Succinate (TopROL XL) 25 mg BID PO 03/14/20 09:00 03/31/20 08:46 Olanzapine (ZyPREXA ZYDIS) 5 mg STAT STAT PO 03/18/20 18:49 03/18/20 18:50 DC Olanzapine (ZyPREXA ZYDIS) 10 mg STAT STAT PO 03/27/20 19:31 03/27/20 19:32 DC 03/27/20 19:39 Olanzapine (ZyPREXA ZYDIS) 10 mg STAT STAT PO 03/28/20 00:32 03/28/20 00:34 DC 03/28/20 00:37 Risperidone (RisperDAL) 0.25 mg BID PO 03/13/20 21:00 03/15/20 16:32 DC 03/15/20 08:57 Risperidone (RisperDAL) 0.5 mg BID PO 03/15/20 21:00 03/17/20 09:51 DC 03/17/20 09:00 Sertraline HCl (Zoloft) 12.5 mg DAILY PO 03/14/20 09:00 03/28/20 11:56 DC 03/27/20 08:16 Trazodone HCl (Desyrel) 50 mg QHSP PRN PO INSOMNIA 03/13/20 22:45 03/30/20 20:12 Venlafaxine HCl (Effexor Xr) 37.5 mg DAILY PO 03/30/20 09:00 03/31/20 08:45 Allergies Coded Allergies: amoxicillin (Verified Allergy, Unknown, 03/13/20) aspirin (Verified Allergy, Unknown, 03/13/20) YURI MADRIGAL DO March 31, 2020 09:11
[2020-03-31] MEDS: haloperidoL 5 MG TAB PO PRN ×2 (10:57→15:13)
[2020-03-31 16:01] VITALS: BP 130/82
[2020-03-31] MEDS: traZODone 50 MG TAB PO PRN (20:36)
[2020-04-01] MEDS: glyBURIDE 2.5 MG TAB PO SCH ×3 (06:48→17:51)
[2020-04-01] MEDS: HumaLOG INSULIN (NovoLOG) PER UNIT SC SCH ×4 (06:48→21:00)
[2020-04-01 07:07] VITALS: BP 146/72
[2020-04-01] MEDS: VENLAFAXINE **XR** 37.5 MG CAPSULE PO SCH (08:25)
[2020-04-01] MEDS: metFORMIN (GLUCOPHAGE) 1000 MG TABLET PO SCH ×2 (08:25→17:51)
[2020-04-01] MEDS: lisinopriL 5 MG TAB PO SCH (08:26)
[2020-04-01] MEDS: METOPROLOL SUCC *XL* 25MG TAB (TopROL *XL*) PO SCH ×2 (08:26→21:04)
[2020-04-01] MEDS: traZODone 50 MG TAB PO PRN (21:04)
[2020-04-02 06:22] VITALS: BP 143/70
[2020-04-02] MEDS: glyBURIDE 2.5 MG TAB PO SCH ×2 (06:57→17:28)
[2020-04-02] MEDS: HumaLOG INSULIN (NovoLOG) PER UNIT SC SCH (07:03)
[2020-04-02] MEDS: VENLAFAXINE **XR** 37.5 MG CAPSULE PO SCH (08:05)
[2020-04-02] MEDS: METOPROLOL SUCC *XL* 25MG TAB (TopROL *XL*) PO SCH ×2 (08:05→20:47)
[2020-04-02] MEDS: lisinopriL 5 MG TAB PO SCH (08:05)
[2020-04-02] MEDS: metFORMIN (GLUCOPHAGE) 1000 MG TABLET PO SCH ×2 (08:05→17:28)
[2020-04-02 16:05] VITALS: BP 129/61
[2020-04-03 06:29] VITALS: BP 120/54
[2020-04-03] MEDS: glyBURIDE 2.5 MG TAB PO SCH ×2 (06:44→17:02)
[2020-04-03] MEDS: metFORMIN (GLUCOPHAGE) 1000 MG TABLET PO SCH ×2 (08:43→17:01)
[2020-04-03] MEDS: lisinopriL 5 MG TAB PO SCH (08:43)
[2020-04-03] MEDS: VENLAFAXINE **XR** 37.5 MG CAPSULE PO SCH (08:43)
[2020-04-03] MEDS: METOPROLOL SUCC *XL* 25MG TAB (TopROL *XL*) PO SCH ×2 (08:43→22:05)
--- NOTE | 2020-04-03 10:02 | MHIPNPDOC ---
[facility] Progress Note Progress Note Inpatient Progress Note Shlomo Damon MRN: N/A Date of : N/A Date of Service: 04/03/2020 History of Present Illness The patient is a 64-year-old woman with a history of schizophrenia presents after stopping her risperidone. She reports she became paranoid, worried and fear that people are out to get here. Her family brought her in as she became more disabled by her paranoia and reported difficulties feeling that people are watching her. She is able to express these more effectively, but generally attempts to hide the severity. Interval History The patient was met with today. She is doing much better and had had a good weekend. Although, she was retained on a sitter, she had no behavioral problems and generally did well. The patient reports that she is tolerating the medication well and that she is interested in going home tomorrow. She has made progress and reports her paranoia has been resolving with less fear. She is able to demonstrate improved insight. Review Of Systems General: Denies fever or appetite changes Cardiovascular: Denies Chest pain or palpations GI: Denies Nausea, vomiting, or bowel changes Respiratory: Denies shortness of breath or cough Neuro: Denies dizziness, tremors Derm: Denies any rashes or pruritus : Denies any dysuria or urinary problems MSK: Denies any muscle tightness or stiffness HEENT: Denies any vision changes or headaches Psychotherapy None on this visit. Vital Signs Reviewed. Mental Status Examination General: Well dressed with good hygiene Speech: Spontaneous and fluid Thought processes: Linear and logical MSK: Smooth and coordinated gait, no signs of tremors or involuntary orofacial movements Thought content: Future orientated Abstract reasoning, and computation: Intact Description of associations: Intact Description of abnormal or psychotic thoughts: Denies any suicidal or homicidal ideation. Denies any auditory or visual hallucinations. Does not appear to be responding to internal stimuli. Does not appear to be endorsing any bizarre or paranoid ideation. Judgment: fair Insight: fair Orientation: Alert and orientated 3 Cognition: Grossly normal Recent and remote memory: Intact Attention span and concentration: Intact Fund of knowledge: Adequate Mood: "okay" Affect: Euthymic with a full range Diagnoses Schizophrenia. Assessment and Plan Schizophrenia: Continue Haldol and venlafaxine. Disposition Discharge tomorrow if she is able to remain off a one-to-one sitter and behavioral control. Time Spent 15 minutes. Friday Vital Signs Vital Signs Date Time Temp Pulse Resp B/P (MAP) Pulse Ox O2 Delivery O2 Flow Rate FiO2 04/03/20 08:43 77 139/64 04/03/20 06:29 97.3 12 Room Air 04/01/20 07:07 100 Current Medications Current Medications Medications (Trade) Dose Ordered Sig/Ayesha Route PRN Reason Start Time Stop Time Status Last Admin Dose Admin Acetaminophen (Tylenol Tab) 650 mg Q6HP PRN PO HEADACHE or DISCOMFORT 03/13/20 22:45 Al Hydrox/Mg Hydrox/Simethicone (Mylanta) 30 ml Q4HP PRN PO HEARTBURN/INDIGESTION 03/13/20 22:45 Aripiprazole (AbiLIFY) 5 mg QHS PO 03/17/20 21:00 03/22/20 09:21 DC 03/21/20 22:31 Aripiprazole (AbiLIFY) 5 mg QHS PO 03/22/20 21:00 03/23/20 09:20 DC 03/22/20 20:41 Clozapine (Clozaril) 12.5 mg QHS PO 03/22/20 21:00 03/22/20 15:56 DC Clozapine (Clozaril) 12.5 mg QHS PO 03/23/20 21:00 03/27/20 10:40 DC 03/26/20 21:07 Clozapine (Clozaril) 25 mg QHS PO 03/27/20 21:00 03/28/20 11:52 DC 03/27/20 20:06 Dextrose (Dextrose 50%) 25 ml ASDIRECTED PRN IV SEE LABEL COMMENTS 03/14/20 09:15 Diphenhydramine HCl (Benadryl) 50 mg STAT STAT PO 03/27/20 19:31 03/27/20 19:32 DC 03/27/20 19:38 Diphenhydramine HCl (Benadryl) 50 mg STAT STAT PO 03/28/20 00:32 03/28/20 00:34 DC 03/28/20 00:37 Diphenhydramine HCl (Benadryl) 50 mg STAT STAT PO 03/23/20 06:36 03/23/20 06:38 DC 03/23/20 06:42 Diphenhydramine HCl (Benadryl) 50 mg STAT STAT PO 03/23/20 19:18 03/23/20 19:20 DC 03/23/20 19:25 Glucagon (Glucagon) 1 mg ASDIRECTED PRN SC SEE LABEL COMMENTS 03/14/20 09:15 Glucose (Glucose) 16 GM ASDIRECTED PRN PO SEE LABEL COMMENTS 03/14/20 09:15 Glyburide (Diabeta, Micronase) 5 mg DAILY@1730 PO 03/14/20 17:30 04/02/20 17:28 Glyburide (Diabeta, Micronase) 10 mg DAILY@0730 PO 03/14/20 07:30 04/03/20 06:44 Haloperidol (Haldol) 0.5 mg Q4HP PRN PO AGITATION 03/17/20 09:30 03/28/20 11:48 DC 03/27/20 18:59 Haloperidol (Haldol) 2 mg STAT STAT PO 03/18/20 20:00 03/18/20 20:01 DC Haloperidol (Haldol) 3 mg STAT STAT IM 03/18/20 20:12 03/18/20 20:14 DC 03/18/20 20:19 Haloperidol (Haldol) 5 mg Q4HP PRN PO AGITATION 03/28/20 12:00 03/31/20 15:13 Haloperidol (Haldol) 5 mg STAT STAT IM 03/18/20 20:09 03/18/20 20:10 Cancel Haloperidol (Haldol) 10 mg BID PO 03/31/20 21:00 04/03/20 08:42 Haloperidol (Haldol) 10 mg DAILY@1800 PO 03/28/20 18:00 03/31/20 15:41 DC 03/30/20 17:12 Haloperidol (Haldol) 10 mg STAT STAT PO 03/23/20 06:36 03/23/20 06:38 DC 03/23/20 06:42 Haloperidol (Haldol) 10 mg STAT STAT PO 03/23/20 19:18 03/23/20 19:20 DC 03/23/20 19:25 Home Med (Med Rec Complete!) ASDIRECTED XX 03/13/20 23:30 03/13/20 23:43 DC Insulin Human Lispro (HumaLOG INSULIN) SEE PROTOCOL TABLE AC SC 03/14/20 12:00 04/02/20 07:04 DC 03/24/20 12:21 Insulin Human Lispro (HumaLOG INSULIN) SEE PROTOCOL TABLE QHS VT 03/14/20 21:00 04/02/20 07:04 DC Lisinopril (Prinivil) 5 mg DAILY PO 03/14/20 09:00 04/03/20 08:43 Lorazepam (Ativan) 1 mg STAT STAT IM 03/18/20 20:00 03/18/20 20:01 Cancel Lorazepam (Ativan) 1 mg STAT STAT IM 03/18/20 20:09 03/18/20 20:11 DC 03/18/20 20:19 Lorazepam (Ativan) 1 mg STAT STAT PO 03/28/20 00:32 03/28/20 00:34 DC 03/28/20 00:37 Lorazepam (Ativan) 1 mg STAT STAT PO 03/18/20 18:41 03/18/20 18:44 DC Lorazepam (Ativan) 1 mg STAT STAT PO 03/23/20 06:36 03/23/20 06:38 DC 03/23/20 06:42 Lorazepam (Ativan) 2 mg STAT STAT PO 03/23/20 19:18 03/23/20 19:20 DC 03/23/20 19:25 Magnesium Hydroxide (Milk Of Magnesia) 30 ml DAILYPRN PRN PO CONSTIPATION 03/13/20 22:45 Metformin HCl (Glucophage) 1,000 mg BID@0800,1800 PO 03/14/20 08:00 04/03/20 08:43 Metoprolol Succinate (TopROL XL) 25 mg BID PO 03/14/20 09:00 04/03/20 08:43 Olanzapine (ZyPREXA ZYDIS) 5 mg STAT STAT PO 03/18/20 18:49 03/18/20 18:50 DC Olanzapine (ZyPREXA ZYDIS) 10 mg STAT STAT PO 03/27/20 19:31 03/27/20 19:32 DC 03/27/20 19:39 Olanzapine (ZyPREXA ZYDIS) 10 mg STAT STAT PO 03/28/20 00:32 03/28/20 00:34 DC 03/28/20 00:37 Risperidone (RisperDAL) 0.25 mg BID PO 03/13/20 21:00 03/15/20 16:32 DC 03/15/20 08:57 Risperidone (RisperDAL) 0.5 mg BID PO 03/15/20 21:00 03/17/20 09:51 DC 03/17/20 09:00 Sertraline HCl (Zoloft) 12.5 mg DAILY PO 03/14/20 09:00 03/28/20 11:56 DC 03/27/20 08:16 Trazodone HCl (Desyrel) 50 mg QHSP PRN PO INSOMNIA 03/13/20 22:45 04/01/20 21:04 Venlafaxine HCl (Effexor Xr) 37.5 mg DAILY PO 03/30/20 09:00 04/03/20 08:43 Allergies Coded Allergies: amoxicillin (Verified Allergy, Unknown, 03/13/20) aspirin (Verified Allergy, Unknown, 03/13/20) YURI MADRIGAL DO April 03, 2020 10:02
[2020-04-03 15:37] VITALS: BP 129/65
[2020-04-04 06:07] VITALS: BP 143/77
[2020-04-04 08:04] VITALS: BP 143/77
[2020-04-04] MEDS: METOPROLOL SUCC *XL* 25MG TAB (TopROL *XL*) PO SCH (08:04)
[2020-04-04] MEDS: VENLAFAXINE **XR** 37.5 MG CAPSULE PO SCH (08:04)
[2020-04-04] MEDS: metFORMIN (GLUCOPHAGE) 1000 MG TABLET PO SCH (08:04)
[2020-04-04] MEDS: lisinopriL 5 MG TAB PO SCH (08:04)
[2020-04-04] MEDS: glyBURIDE 2.5 MG TAB PO SCH (08:05)
--- NOTE | 2020-04-04 09:16 | MHDSPDOC ---
[facility] Discharge Summary Discharge Summary DATE OF ADMISSION: Mar 13, 2020 at 22:41 DATE OF DISCHARGE: 04/04/2020 Discharge Shlomo Damon MRN: [id number] Date of : N/A Date of Service: 04/04/2020 Diagnoses Schizophrenia. History of Present Illness The patient is a 64-year-old woman with a history of schizophrenia presents after stopping her risperidone. She reports she became paranoid, worried and fear that people are out to get here. Her family brought her in as she became more disabled by her paranoia and reported difficulties feeling that people are watching her. She is able to express these more effectively, but generally attempts to hide the severity. Consultants Involved Hospitalist/PCP screening Treatment and Progress On The Unit The patient was admitted to the inpatient mental health unit where she was notably psychotic. She had a protracted course where she was initially tried on higher dose of risperidone with little effect. She was subsequently tried on Clozaril with no effect as well. She was psychotic had multiple episodes of being restrained, running at the door, becoming violent and aggressive. Eventually she was changed to Effexor for her antidepressant from sertraline and onto Haldol up to a total of 10 mg BID with positive effects. She slowly began to stabilize becoming much less paranoid more able to relate to her environment and was able to demonstrate well over 24 hours of behavioral control office sitter where she was then discharged to the care of her sister who would be keeping a close eye on her. Discharge Assessment 64-year-old man with likely schizophrenia presents psychotic needing significantly complicated management. She is eventually triaged to Effexor and Haldol with good effect. The patient at the time of discharge did not meet criteria for involuntary admission/extension due to having a normal mental status exam, fair insight into the situation, They are engaged in the discharge process, as well as being friendly and amenable in behavioral control and havent been engaging in any observed concerning behavior or ideation recently. They decline voluntary extension/admission at this time and must be discharged in good trace, as Im unable to make a case for holding the patient against their will. They may have historical risk factors of admissions and other interactions with psychiatry however, those are not modifiable from a clinical perspective. The patient will need to be discharged in good trace. Mental Status Examination General: Well dressed with good hygiene Speech: Spontaneous and fluid Thought processes: Linear and logical MSK: Smooth and coordinated gait, no signs of tremors or involuntary orofacial movements Thought content: Future orientated Abstract reasoning, and computation: Intact Description of associations: Intact Description of abnormal or psychotic thoughts: Denies any suicidal or homicidal ideation. Denies any auditory or visual hallucinations. Does not appear to be responding to internal stimuli. Does not appear to be endorsing any bizarre or paranoid ideation. Judgment: fair Insight: fair Orientation: Alert and orientated 3 Cognition: Grossly normal Recent and remote memory: Intact Attention span and concentration: Intact Fund of knowledge: Adequate Mood: "okay" Affect: Euthymic with a full range Follow Up The social work team worked during the predischarge meeting in order to evaluate for further issues of lethality address them fully before discharge. They worked on safety planning with the patient's family members in order to ensure that the patient will have a safe and effective discharge. Time Spent The amount of time spent in the coordination of care for this patient was approximately 45 minutes. Friday Vital Signs/I&Os Vital Signs Date Time Temp Pulse Resp B/P (MAP) Pulse Ox O2 Delivery O2 Flow Rate FiO2 04/04/20 08:04 59 143/77 04/04/20 06:07 98.8 16 98 Room Air Medications Scheduled Glyburide (Glyburide) 5 Mg Tablet, 10 MG PO QAM, (Reported) Glyburide (Glyburide) 5 Mg Tablet, 5 MG PO QPM, (Reported) Haloperidol (Haloperidol) 10 Mg Tablet, 10 MG PO BID for thoughts for 7 Days, #14 Lisinopril (Lisinopril) 5 Mg Tablet, 5 MG PO DAILY, (Reported) Metformin HCl (Metformin HCl) 1,000 Mg Tablet, 1,000 MG PO BID, (Reported) Metoprolol Succinate (Metoprolol Succinate) 25 Mg Tab.er.24h, 25 MG PO BID, (Reported) Venlafaxine HCl (Venlafaxine HCl ER) 37.5 Mg Cap.er.24h, 37.5 MG PO DAILY for mood for 7 Days, #7 Allergies Coded Allergies: amoxicillin (Verified Allergy, Unknown, 03/13/20) aspirin (Verified Allergy, Unknown, 03/13/20) YURI MADRIGAL DO April 04, 2020 09:16
[2020-04-04] MEDS ORDERED: HALO10TA20 PO (10:15)
[2020-04-04] MEDS ORDERED: VENL37.598 PO (10:15)
== END 2020-04-04 14:15 | disposition home or self-care (01) | DRG 885 ==
LOC: M ED 20:52 → M ED INP 22:41 → M PSY 03-14 00:55
PROVIDERS: ADMIT Psychiatry & Neurology Addiction Medicine; ATTEND Psychiatry & Neurology Addiction Medicine
DX: F20.0 Paranoid schizophrenia (principal); Z91.14 Patient's other noncompliance with medication regimen; Z79.899 Other long term (current) drug therapy; Z88.6 Allergy status to analgesic agent; Z88.0 Allergy status to penicillin; I10 Essential (primary) hypertension; E11.9 Type 2 diabetes mellitus without complications